=== PATIENT | female | born 1980 | race American Indian/Alaskan Native ===

== ENCOUNTER 2019-12-05 08:32 | Outpatient (CLI) | payer BC, SELFPAY ==
[2019-12-05 08:44] LABS: Basophils Absolute Auto 0.1 K/mm3 (0.0-0.1); Basophils Percent Auto 1.1 % (0.2-1.2); Eosinophils Absolute Auto 0.1 K/mm3 (0-0.3); Eosinophils Percent Auto 2.1 % (0-4.4); Hematocrit 43.6 % (37.0-47.0); Immature Granulocyte Absolute 0.01 K/mm3 (0.00-0.031); Immature Granulocyte Percent A 0.2 % (0-0.5); Lymphocytes Absolute Auto 1.97 K/mm3 (0.9-3.2); Lymphocytes Percent Auto 31.4 % (18.3-44.2); Mean Corpuscular HGB Conc 32.1 g/dl (32-36); Mean Corpuscular Volume 90.3 fl (80-100); Mean Platelet Volume 8.5 fl (7.4-10.4); Monocytes Absolute Auto 0.3 K/mm3 (0.1-0.6); Monocytes Percent Auto 5.3 % (2.6-8.5); Neutrophils Absolute Auto 3.8 K/mm3 (1.3-6.7); Neutrophils Percent Auto 59.9 % (45.5-73.1); Platelet Count Result 404 k/mm3 (150-375); Red Blood Count 4.83 M/mm3 (4.2-5.4); Red Cell Distribution Width 12.7 % (11.5-14.5); White Blood Count 6.3 K/mm3 (4.5-10.0)
[2019-12-08 05:16] LABS: Homocysteine 8.3 umol/L (<10.4)
== END 2019-12-05 08:33 | disposition home or self-care (01) ==
LOC: ANHLAB 08:34
PROVIDERS: PCP Family Medicine; Visit Provider Internal Medicine Hematology & Oncology
DX: D47.3 Essential (hemorrhagic) thrombocythemia (principal)
CPT/HCPCS: 36415; 83090; 85025

== ENCOUNTER 2020-06-16 18:22 | Emergency (ER) | payer BC, SELFPAY ==
--- NOTE | ~2020-06-16 | XR_ITS ---
EXAMINATION: XR abdomen/kub 1V DATE: 06/16/2020 19:06 INDICATION: Hematuria. TECHNIQUE: A supine view of the abdomen on 2 radiographs was obtained. COMPARISON: CT abdomen and pelvis 05/19/2018 FINDINGS: There are no dilated loops of bowel. There is a 1 mm stone in left kidney. There are phlebo liths in the pelvis. Surgical clips in the right upper quadrant are likely from cholecystectomy. IMPRESSION: 1. 1 mm stone in left kidney. Reviewed, dictated and finalized at location [facility].
[2020-06-16 18:29] VITALS: BP 114/82; PULSE 95; RESP 14; TEMP 36.6; O2SAT 99
--- NOTE | 2020-06-16 18:53 | ED.GENADULT ---
HPI - General Adult General Chief complaint: Urogenital-Female Stated complaint: UTI Time Seen by Provider: 06/16/20 18:53 Source: patient Mode of arrival: ambulatory Limitations: no limitations History of Present Illness HPI narrative: 39-year-old female patient resents to the the medical center with complaints of urinary symptoms. Patient states her symptoms started Sunday. Patient states she was seen this past Sunday at a [facility] was placed on Bactrim. Patient states she called them today to see if her culture was back however her culture results have not come back yet. Patient states she is feeling even worse even after being on the Bactrim for about 3 days. Patient states she is feeling nausea, increasing low back pain, some lower abdominal pain, still has pain with urination. Patient does have history of kidney stones before in the past but states that they passed on her own and she never needed surgery for them. Patient states that today she is also had a decrease in urine output. Related Data Home Medications Medication Instructions Recorded Confirmed aspirin [Aspirin Low Dose] 81 mg PO DAILY 06/16/20 06/16/20 folic acid 1 mg PO DAILY 06/16/20 06/16/20 sulfamethoxazole-trimethoprim 1 tablet PO Q12H 06/16/20 06/16/20 [Bactrim DS] Allergies Allergy/AdvReac Type Severity Reaction Status Date / Time acetaminophen AdvReac Unknown VOMTING Verified 06/16/20 18:42 metronidazole AdvReac Unknown GI UPSET / Verified 06/16/20 18:42 EYES/TONGUE TURNING YELLOW HYDROCODONE BIT Allergy Unknown VOMITING Uncoded 01/25/19 11:41 METRONIDAZOLE HCL Allergy Unknown EYES/TONGUE Uncoded 01/25/19 11:41 TURNED YELLOW - GI UPSET Review of Systems Review of Systems: Narrative: CONSTITUTIONAL: Denies fever, chills, or sweats. EYES: Denies visual changes, redness, or discharge. ENT: Denies rhinorrhea, congestion, sore throat, or otalgia. CARDIOVASCULAR: Denies chest pain, palpitations, or edema. RESPIRATORY: Denies cough or dyspnea. GASTROINTESTINAL: Denies abdominal pain, positive nausea, denies vomiting, or diarrhea. GENITOURINARY: Positive dysuria, positive hematuria. SKIN: Denies rash or itching. MUSCULOSKELETAL: Positive low back pain, denies joint pain, or myalgia. NEUROLOGIC: Denies headache, numbness, or weakness. PSYCHIATRIC: Denies anxiety or depression. [facility] Past Medical History Medical History (Updated 06/16/20 @ 19:21 by GILMAR Marquez) Anxiety Depression GERD (gastroesophageal reflux disease) Hyperthyroidism IBS (irritable bowel syndrome) Kidney stones Migraines Pneumonia Pulmonary embolism Urinary tract infection Surgical History Surgical History (Updated 06/16/20 @ 18:54 by GILMAR Marquez) Hx of cholecystectomy Family History Family History Mother Family history of Parkinson's disease Grandparent Family history of Parkinson's disease Other Hypertension Social History Social History Smoking status: Never smoker Alcohol intake: current Comments At the time of my signature I agree with nursing past medical history, surgical, social, and family history. There is no relevant family history pertinent to the presenting complaint. Exam Narrative: Exam Narrative: GENERAL: Well-appearing, well-nourished, and in no acute distress. HEAD: Normocephalic, atraumatic. EYES: PERRLA and EOMI. ENT: Nares clear, no rhinorrhea or epistaxis. Mucous membranes moist. NECK: Supple. No lymphadenopathy CHEST: Clear to auscultation. No respiratory distress. HEART: Regular rate and rhythm. No murmur heard. Normal peripheral pulses. ABDOMEN: Soft, nontender, nondistended, normal active bowel sounds. Suprapubic pelvic pain Palpation. Positive CVA tenderness on bilateral sides on percussion. EXTREMITIES: Normal range of motion. No edema. SKIN: Warm
== END 2020-06-16 19:20 | disposition short-term general hospital (02) ==
PROVIDERS: Emergency Provider Nurse Practitioner Family; PCP Family Medicine
DX: N20.0 Calculus of kidney (principal); F41.9 Anxiety disorder, unspecified; F32.9 Major depressive disorder, single episode, unspecified; K21.9 Gastro-esophageal reflux disease without esophagitis; E05.90 Thyrotoxicosis, unspecified without thyrotoxic crisis or storm; Z86.711 Personal history of pulmonary embolism; Z87.440 Personal history of urinary (tract) infections
CPT/HCPCS: 74018; 81003; 81025; 99213; G0463

== ENCOUNTER 2020-06-16 19:56 | Emergency (ER) | payer BC, SELFPAY ==
--- NOTE | ~2020-06-16 | CT_ITS ---
EXAMINATION: CT abdomen pelvis wo con DATE: 06/16/2020 21:37 INDICATION: Left flank pain. TECHNIQUE: Computed tomography (CT) of the abdomen and pelvis was performed without intravenous contr ast. Automated exposure control and iterative reconstruction technique were employed. The dose-length product was 181.00 mGy-cm. COMPARISON: CT abdomen and pelvis 05/19/2018 FINDINGS: The visualized portions of the lung bases demonstrate mild atelectasis. No pleural effusion . The heart size is normal. No pericardial effusion. Pectus excavatum is noted. There is a small slid ing hiatal hernia. The liver and spleen are normal. There are changes of cholecystectomy. The pancrea s, adrenal glands, and right kidney are normal. There is a 3 mm stone in left kidney. There are no di lated loops of bowel. The appendix is normal. There are no pathologically enlarged lymph nodes. There is no free intraperitoneal fluid. There is thoracolumbar levocurvature. IMPRESSION: 1. 3 mm nonobstructing left kidney stone. 2. Small sliding hiatal hernia. Reviewed, dictated and finalized at location [facility].
[2020-06-16 19:59] VITALS: BP 132/84; PULSE 99; RESP 14; TEMP 36.4; O2SAT 100
[2020-06-16 20:24] LABS: Basophils Absolute Auto 0.1 K/mm3 (0.0-0.1); Basophils Percent Auto 0.8 % (0.2-1.2); Eosinophils Absolute Auto 0.2 K/mm3 (0-0.3); Eosinophils Percent Auto 1.3 % (0-4.4); Hematocrit 43.9 % (37.0-47.0); Hemoglobin 14.7 g/dL (12.0-15.0); Immature Granulocyte Absolute 0.04 K/mm3 (0.00-0.031); Immature Granulocyte Percent A 0.3 % (0-0.5); Lymphocytes Absolute Auto 3.59 K/mm3 (0.9-3.2); Lymphocytes Percent Auto 28.2 % (18.3-44.2); Mean Corpuscular HGB Conc 33.5 g/dl (32-36); Mean Corpuscular Hemoglobin 29.9 pg (26-34); Mean Corpuscular Volume 89.2 fl (80-100); Mean Platelet Volume 8.2 fl (7.4-10.4); Monocytes Absolute Auto 0.8 K/mm3 (0.1-0.6); Monocytes Percent Auto 6.3 % (2.6-8.5); Neutrophils Absolute Auto 8.1 K/mm3 (1.3-6.7); Neutrophils Percent Auto 63.1 % (45.5-73.1); Platelet Count Result 438 k/mm3 (150-375); Red Blood Count 4.92 M/mm3 (4.2-5.4); Red Cell Distribution Width 12.7 % (11.5-14.5); White Blood Count 12.8 K/mm3 (4.5-10.0)
[2020-06-16 20:27] LABS: Add Urine Microscopic? NO; Appearance Urine Clear (Clear); Bilirubin Urine Negative (Negative); Blood Urine Negative (Negative); Color Urine Yellow (Yellow); Glucose Urine UA Negative (Negative); Ketones Urine Negative (Negative); Leukocyte Esterase Ur Negative LEU/UL (Negative); Nitrate Urine Negative (Negative); Protein Urine Negative (Negative); Specific Grav Ur 1.018 (1.001-1.035); Urobilinogen Urine Negative mg/dL (<2.0)
[2020-06-16 20:36] LABS: Anion Gap 10 mmol/L (8-16); Blood Urea Nitrogen 12 mg/dL (7-17); Calcium 8.6 mg/dL (8.4-10.2); Carbon Dioxide 26 mmol/L (22-30); Chloride 98 mmol/L (98-107); Estimated CRCL calculation 65 ml/min; Estimated Glomerular Filt Rate > 60; Glucose 104 mg/dL (65-105); Potassium 3.7 mmol/L (3.4-5.0); Sodium 134 mmol/L (137-145)
[2020-06-16] MEDS: SODIUM CHLORIDE 0.9% IV 1,000 ML 999 ML IV CONT (20:46)
--- NOTE | 2020-06-16 22:08 | ED.ABDPAIN ---
HPI - Abdominal Pain General Chief Complaint: Abdominal Pain Stated Complaint: kidney stone Time Seen by Provider: 06/16/20 20:05 History of Present Illness HPI narrative: Patient is a 39-year-old female who presents the ER with abdominal pain and flank pain. Patient began having symptoms of UTI 5 days ago. 3 days ago she went to an urgent care and was prescribed Bactrim which she has been taking. She feels like she is having persistent lower abdominal discomfort that is radiating into her left flank. Associated with mild nausea. Comes in waves. She does endorse urinary frequency as well as dysuria. Was seen at an urgent care and told she had a kidney stone on x-ray and sent here for further evaluation. Related Data Home Medications Medication Instructions Recorded Confirmed aspirin [Aspirin Low Dose] 81 mg PO DAILY 06/16/20 06/16/20 folic acid 1 mg PO DAILY 06/16/20 06/16/20 sulfamethoxazole-trimethoprim 1 tablet PO Q12H 06/16/20 06/16/20 [Bactrim DS] Allergies Allergy/AdvReac Type Severity Reaction Status Date / Time acetaminophen AdvReac Unknown VOMTING Verified 06/16/20 18:42 metronidazole AdvReac Unknown GI UPSET / Verified 06/16/20 18:42 EYES/TONGUE TURNING YELLOW HYDROCODONE BIT Allergy Unknown VOMITING Uncoded 01/25/19 11:41 METRONIDAZOLE HCL Allergy Unknown EYES/TONGUE Uncoded 01/25/19 11:41 TURNED YELLOW - GI UPSET Review of Systems Review of Systems: All systems reviewed & are unremarkable except as noted in HPI and below Constitutional: Constitutional: Denies chills, Denies fever(s) and Denies weakness ENT: Denies nasal congestion and Denies sore throat Gastrointestinal: Gastrointestinal: Reports abdominal pain, Denies diarrhea, Reports nausea and Denies vomiting Genitourinary: Genitourinary: Reports nocturia, Reports dysuria and Reports flank pain PMFSH Past Medical History Medical History (Updated 06/16/20 @ 22:15 by Jose Mitchell MD) Anxiety Depression GERD (gastroesophageal reflux disease) Hyperthyroidism IBS (irritable bowel syndrome) Kidney stones Migraines Pneumonia Pulmonary embolism Urinary tract infection Surgical History Surgical History (Updated 06/16/20 @ 18:54 by GILMAR Marquez) Hx of cholecystectomy Social History Social History Smoking status: Never smoker Alcohol intake: current Exam Narrative: Exam Narrative: GENERAL: Well-appearing, well-nourished, and in no acute distress. HEAD: Normocephalic, atraumatic. ENT: Mucous membranes moist. CHEST: Clear to auscultation. No respiratory distress. HEART: Regular rate and rhythm. Normal peripheral pulses. ABDOMEN: Soft, nontender, nondistended. Mild left CVA tenderness. EXTREMITIES: Normal range of motion. No edema. SKIN: Warm, dry, no rash. NEURO: Alert and oriented x3. Course Course Emergency Course: Patient informed of results. Hydrated. Discharge home with [facility]. Vital Signs Vital signs: Vital Signs Temperature 97.5 F L 06/16/20 19:59 Pulse Rate 99 06/16/20 19:59 Respiratory Rate 14 06/16/20 19:59 Blood Pressure 132/84 06/16/20 19:59 Pulse Oximetry 100 06/16/20 19:59 Temperature 97.5 F L 06/16/20 19:59 Pulse Rate 99 06/16/20 19:59 Respiratory Rate 14 06/16/20 19:59 Blood Pressure 132/84 06/16/20 19:59 Pulse Oximetry 100 06/16/20 19:59 MDM - Abdominal Pain Lab Data Result diagrams: 06/16/20 20:19 06/16/20 20:19 Labs: Lab Results 06/16/20 06/16/20 06/16/20 Range/Units 20:19 20:19 20:19 WBC 12.8 H (4.5-10.0) K/mm3 RBC 4.92 (4.2-5.4) M/mm3 Hgb 14.7 (12.0-15.0) g/dL Hct 43.9 (37.0-47.0) % MCV 89.2 (80-100) fl MCH 29.9 (26-34) pg MCHC 33.5 (32-36) g/dl RDW 12.7 (11.5-14.5) % Plt Count 438 H (150-375) k/mm3 MPV 8.2 (7.4-10.4) fl Immature Gran % (Auto) 0.3 (0-0.5) % Jody
[2020-06-16] MEDS: KETOROLAC 30 MG/ML VIAL (*BKC) IV PUSH (22:27)
== END 2020-06-17 22:35 | disposition home or self-care (01) ==
PROVIDERS: Emergency Provider Emergency Medicine; PCP Family Medicine
DX: N39.0 Urinary tract infection, site not specified (principal); K21.9 Gastro-esophageal reflux disease without esophagitis; Z86.711 Personal history of pulmonary embolism; E05.90 Thyrotoxicosis, unspecified without thyrotoxic crisis or storm; Z79.01 Long term (current) use of anticoagulants
CPT/HCPCS: 36415; 74176; 80048; 81003; 81025; 85025; 96374; 99284; J1885; J7030

== ENCOUNTER 2020-09-02 15:28 | Outpatient (CLI) | payer BC, SELFPAY ==
[2020-09-02 15:41] LABS: Basophils Absolute Auto 0.1 K/mm3 (0.0-0.1); Basophils Percent Auto 1.1 % (0.2-1.2); Eosinophils Absolute Auto 0.3 K/mm3 (0-0.3); Eosinophils Percent Auto 3.1 % (0-4.4); Hematocrit 40.7 % (37.0-47.0); Hemoglobin 13.5 g/dL (12.0-15.0); Immature Granulocyte Absolute 0.02 K/mm3 (0.00-0.031); Immature Granulocyte Percent A 0.2 % (0-0.5); Lymphocytes Absolute Auto 2.52 K/mm3 (0.9-3.2); Lymphocytes Percent Auto 30.3 % (18.3-44.2); Mean Corpuscular HGB Conc 33.2 g/dl (32-36); Mean Corpuscular Hemoglobin 29.7 pg (26-34); Mean Corpuscular Volume 89.5 fl (80-100); Mean Platelet Volume 8.4 fl (7.4-10.4); Monocytes Absolute Auto 0.6 K/mm3 (0.1-0.6); Monocytes Percent Auto 7.2 % (2.6-8.5); Neutrophils Absolute Auto 4.8 K/mm3 (1.3-6.7); Neutrophils Percent Auto 58.1 % (45.5-73.1); Platelet Count Result 380 k/mm3 (150-375); Red Blood Count 4.55 M/mm3 (4.2-5.4); Red Cell Distribution Width 12.7 % (11.5-14.5); White Blood Count 8.3 K/mm3 (4.5-10.0)
[2020-09-02 16:36] LABS: Alanine Aminotransferase 20 U/L (4-35); Albumin Level 4.1 g/dL (3.5-5.1); Alkaline Phosphatase 94 U/L (38-126); Anion Gap 8 mmol/L (8-16); Aspartate Amino Transferase 24 U/L (14-36); Bilirubin,Total 0.5 mg/dL (0.2-1.3); Blood Urea Nitrogen 13 mg/dL (7-17); Calcium 8.7 mg/dL (8.4-10.2); Carbon Dioxide 25 mmol/L (22-30); Chloride 104 mmol/L (98-107); Estimated Glomerular Filt Rate > 60; Glucose 92 mg/dL (65-105); Sodium 137 mmol/L (137-145)
== END 2020-09-02 15:29 | disposition home or self-care (01) ==
LOC: ANHLAB 15:29
PROVIDERS: PCP Family Medicine; Visit Provider Internal Medicine Hematology & Oncology
DX: D47.3 Essential (hemorrhagic) thrombocythemia (principal)
CPT/HCPCS: 36415; 80053; 85025

== ENCOUNTER 2020-10-11 07:47 | Outpatient (CLI) | payer BC, SELFPAY ==
--- NOTE | ~2020-10-11 | US_ITS ---
EXAMINATION: US pelvic complete w TV DATE: 10/11/2020 08:37 INDICATION: Vaginal bleeding and pelvic pain TECHNIQUE: Multiple transabdominal and endovaginal sonographic images of the pelvis were obtained. COMPARISON: 07/20/2013; CT, 06/16/2020 FINDINGS: The uterus measures 7.5 x 5.4 x 4.7 cm. The endometrial complex measures 10 mm. The right o vary is not visualized. There is a 5.1 x 3.6 x 2.4 cm heterogeneous mass of the right adnexa. Also se en is a second 3.1 x 2.1 x 2.1 cm heterogeneous right adnexal mass. Correlating intermediate attenuat ion lesions are identified in the right adnexa on the comparison unenhanced CT but incompletely vernon cterized. The left ovary measures 2.2 x 2.3 x 2.7 cm. There is normal vascular flow in the ovaries. T here is no free fluid in the pelvis. IMPRESSION: 1. Right adnexal masses which could reflect hemorrhagic cysts or endometriomas. Follow-up pelvic ultr asound in 6-12 weeks is recommended. If persistent, consider further evaluation by MRI without and wi th contrast. Reviewed, dictated and finalized at location A. [employer] IMPRESSION: 1. Right adnexal masses which could reflect hemorrhagic cysts or endometriomas. Follow-up pelvic ultrasound in 6-12 weeks is recommended. If persistent, consi adebayo further evaluation by MRI without and with contrast.
== END 2020-10-11 07:48 | disposition home or self-care (01) ==
PROVIDERS: PCP Family Medicine; Visit Provider Obstetrics & Gynecology
DX: N93.9 Abnormal uterine and vaginal bleeding, unspecified (principal); R10.2 Pelvic and perineal pain
CPT/HCPCS: 76830; 76856

== ENCOUNTER 2020-10-26 07:52 | Outpatient (CLI) | payer BC, SELFPAY | END 2020-10-26 07:53 | disposition home or self-care (01) | LOC: ANHSURGERY 07:59 | PROVIDERS: PCP Family Medicine; Visit Provider Obstetrics & Gynecology | DX: Z01.812 Encounter for preprocedural laboratory examination (principal); R10.2 Pelvic and perineal pain | CPT/HCPCS: 36415; 86850; 86900; 86901 ==

== ENCOUNTER 2020-10-29 00:33 | Outpatient (CLI) | payer BC, SELFPAY ==
[2020-10-29 19:17] LABS: SARS-CoV-2 RNA PCR Negative
== END 2020-10-29 00:34 | disposition home or self-care (01) ==
LOC: ANHCOVIDDT 00:34
PROVIDERS: PCP Family Medicine; Visit Provider Obstetrics & Gynecology
DX: Z01.818 Encounter for other preprocedural examination (principal); Z20.822 Contact with and (suspected) exposure to COVID-19
CPT/HCPCS: C9803; U0003; U0005

== ENCOUNTER 2020-11-01 00:50 | Day surgery (SDC) | payer BC, SELFPAY ==
[2020-10-25 14:20] VITALS: BMI 23.1
--- NOTE | 2020-10-27 08:08 | PM.IMHP ---
H&P: HPI History of Present Illness Date/Time: 10/27/20 08:08 Chief Complaint: pain Narrative: Mayda Cornelius is a 40 year old female who was admitted for diagnostic laparoscopy with right ovarian cystectomy and possible RSO. She has pelvic pain and underwent ultrasound which showed a complex right ovarian cyst. It may be an endometrioma. She opted for laparoscopy with removal possible RSO. Risks and benefits were reviewed including but not exclusive , aspiration pneumonia, bleeding, transfusion, perforation injury to bowel, bladder, ureters, or other internal organs with need for laparotomy. She voiced good understanding. She had all questions answered. She asked to proceed Review of Systems Review of Systems: All systems reviewed & are unremarkable except as noted in HPI and below PMFSH Past Medical History Medical History Anxiety Depression GERD (gastroesophageal reflux disease) Hyperthyroidism IBS (irritable bowel syndrome) Kidney stones Migraines Pneumonia Pulmonary embolism Urinary tract infection Surgical History Surgical History Hx of cholecystectomy Family History Family History Mother Family history of Parkinson's disease Grandparent Family history of Parkinson's disease Other Hypertension Social History Social History Smoking status: Never smoker Alcohol intake: current Drinks per week: 3 Spiritual care concerns: No Meds Home Medications and Allergies Home Medications Medication Instructions Recorded Confirmed Type aspirin [Aspirin Low Dose] 81 mg PO DAILY 06/16/20 10/25/20 History folic acid 1 mg PO DAILY 06/16/20 10/25/20 History Allergies Allergy/AdvReac Type Severity Reaction Status Date / Time metronidazole AdvReac Unknown GI UPSET / Verified 06/16/20 18:42 EYES/TONGUE TURNING YELLOW HYDROCODONE BIT Allergy Unknown VOMITING Uncoded 01/25/19 11:41 METRONIDAZOLE HCL Allergy EYES/TONGUE Uncoded 10/25/20 14:28 TURNED YELLOW - GI UPSET Exam Const: General: no acute distress Eyes: General: appearance normal, both eyes and all related structures Neck: Neck: supple and no JVD Thyroid: thyroid normal Resp: Effort & Inspection: normal respiratory effort Auscultation: clear to auscultation bilaterally Cardio: Rate: regular rate Rhythm: regular rhythm GI: Inspection: non-distended GI Palp: Yes Soft to palpation, No Tenderness to palpation present (GI) and No Guarding due to palpation present (GI) Auscultation: normal bowel sounds : General: Yes bladder normal to inspection External Female Exam: normal external appearance Speculum Exam - Vagina: normal appearance of the vagina Speculum Exam - Cervix: normal appearance of the cervix Bimanual exam- vagina & uterus: uterine size normal Bimanual Exam- Adnexa, other: Adnexal mass present on the right tender Skin: General skin exam: no rashes or lesions noted Extrem: General: normal to inspection and no edema Psych: Mental Status: mental status grossly normal Affect: normal affect Assessment and Plan Additional Plan impression: Right complex ovarian cyst Plan: Laparoscopy right ovarian cystectomy /possible right salpingo-oophorectomy
[2020-11-01] VITALS (8 sets, daily range): BP systolic 91–120; BP diastolic 67–79; PULSE 91–104; RESP 12–20; TEMP 36.5–36.8; O2SAT 98–100; BMI 23.6
--- NOTE | 2020-11-01 05:45 | WPDHPUPDATE1 ---
History and Physical Update Update Date/Time: 11/01/20 05:45 History and Physical has been reviewed, including an updated exam of the patient. There are NO changes in the patient's condition. Risks, benefits, and alternatives have been discussed and questions answered. Patient agrees to proceed with procedure.
[2020-11-01] MEDS: LACTATED RINGERS 1,000 ML 30 ML IV CONT ×2 (06:46→08:23)
[2020-11-01] MEDS: ACETAMINOPHEN 500 MG TABLET 1000 MG PO (06:52)
[2020-11-01] MEDS: KETOROLAC 15 MG/ML VIAL (*BKC) IV PUSH (06:52)
--- NOTE | 2020-11-01 06:58 | WPDANESEPPF ---
Anes - Initial Pre Proc Eval Procedure: Operation Date: 11/01/20 07:30 Proposed Procedures p Laparoscopic Right Ovarian Cystectomy, Possible Right Salpingo-Oophorectomy - Georgi Schroeder MD Date/Time: 11/01/20 06:58 Surgeon: Georgi Schroeder MD Pre Op Diagnosis: Right Ovarian Cyst, Pelvic Pain Patient Data Age: 40 Gender: F Height: 5 ft 4 in Weight: 62.6 kg Allergies Allergy/AdvReac Type Severity Reaction Status Date / Time metronidazole AdvReac Unknown GI UPSET / Verified 11/01/20 06:26 EYES/TONGUE TURNING YELLOW METRONIDAZOLE HCL Allergy EYES/TONGUE Uncoded 11/01/20 06:26 TURNED YELLOW - GI UPSET HYDROCODONE BIT AdvReac Intermediate VOMITING Uncoded 11/01/20 06:26 Home Medications Medication Instructions Recorded Confirmed Type aspirin [Aspirin Low Dose] 81 mg PO DAILY 06/16/20 11/01/20 History folic acid 1 mg PO DAILY 06/16/20 11/01/20 History hydrocodone-acetaminophen [Frederic] 1 tablet PO Q4H PRN #30 tablet 11/01/20 Rx ondansetron HCl [Zofran] 4 mg PO Q6H PRN #14 tablet 11/01/20 Rx Patient hx anesthesia problems: post op nausea/vomiting Family hx anesthesia problems: none PMFSH Past Medical History Medical History Anxiety Depression GERD (gastroesophageal reflux disease) Hyperthyroidism IBS (irritable bowel syndrome) Kidney stones Migraines Pneumonia Pulmonary embolism Urinary tract infection Surgical History Surgical History Hx of cholecystectomy Family History Family History Mother Family history of Parkinson's disease Grandparent Family history of Parkinson's disease Other Hypertension Social History Social History Smoking status: Never smoker Alcohol intake: current Drinks per week: 3 Living arrangements: with family Spiritual care concerns: No Anes - Eval Final PreProcedure Day of Procedure 11/01/20 06:58 Patient weight: normal Heart: regular rate and rhythm Lungs: clear to auscultation Airway: Mallampati scale class 1 Neurological: alert and oriented Last oral intake: >/= 8 hours ASA classification: II Emergent: no Anesthetic plan: proceed Anesthesia type and monitoring: general ETT and standard monitoring Informed Consent: The patient's anesthetic plan and its attendant risks and benefits were discussed with the patient/family/POA. Questions were solicited and answers provided to the satisfaction of the patient/family/POA.
[2020-11-01] MEDS: SCOPOLAMINE 1.5 MG PATCH TRANSDERM (07:18)
--- NOTE | 2020-11-01 08:15 | PM.PROC ---
Procedure Note - Detailed Date of procedure: 11/01/20 Pre-op diagnosis: Right Ovarian Cyst, Pelvic Pain Surgeon: Georgi Schroeder MD Postop diagnosis: Right endometrioma/pelvic pain/adhesions Procedure: Laparoscopic right salpingo-oophorectomy and lysis of adhesions Anesthesia: General endotracheal Complications: None EBL: 5cc Findings: Enlarged right-sided endometrioma that involved the tube and ovary. Multiple adhesions. Normal-appearing left ovary and tube. Normal-appearing uterus. Normal-appearing appendix Description of procedure: The patient was prepped draped in the normal sterile fashion placed in the dorsal lithotomy position. Under excellent general endotracheal anesthesia weighted speculum placed in posterior fornix of vagina. Anterior lip of the cervix was grasped with a single-tooth tenaculum and a Mejia's cannula inserted to the cervix and attached to be used later for uterine manipulation. The bladder was drained of clear urine. The weighted speculum was removed and the gloves were changed. An infraumbilical incision was made the Veress needle passed in the abdomen. Abdomen filled with CO2 gas [id number]. The 5mm trocar was advanced under direct visualization assuring no injury. The patient placed in [facility] in Trendelenburg and a suprapubic incision made. 5mm trocar was advanced under direct visualization assuring no injury. A right lower quadrant incision made and the 10mm trocar advanced in the abdomen assuring no injury. The endometrioma was noted to be large and irregular. Using sharp dissection and sharply dissected from the posterior cervix of the uterus and the ovarian fossa. The infundibulopelvic structure was then skeletonized. This was serially clamped, burned, cut with the LigaSure. The specimen was placed in the Endo-Catch and removed through the right lower quadrant incision. Irrigation was undertaken until clear. Hemostasis was assured the left adnexa appeared within normal limits and irrigation was undertaken until clear. Blood loss estimated at5cc. The lower site removed. The upper site removed and after gas removed from the abdomen and the incisions closed with 4 O Monocryl and glue. Blood loss was estimated at5cc. All sponge, needle, instrument counts were correct. There were no immediate complications
[2020-11-01] MEDS: fentaNYL CITRATE INJ (*CRX) 100 MCG/2 ML VIAL 25 MCG IV PUSH (08:36)
[2020-11-01] MEDS: ONDANSETRON INJ 4 MG/2 ML VIAL IV PUSH (08:45)
== END 2020-11-01 10:30 | disposition home or self-care (01) ==
PROVIDERS: PCP Family Medicine; Visit Provider Obstetrics & Gynecology
PROC: (CPT 49320; principal; 2020-11-01 07:30)
DX: N80.1 Endometriosis of ovary (principal); N73.6 Female pelvic peritoneal adhesions (postinfective); R10.2 Pelvic and perineal pain; E05.90 Thyrotoxicosis, unspecified without thyrotoxic crisis or storm; K21.9 Gastro-esophageal reflux disease without esophagitis; F41.8 Other specified anxiety disorders; K58.9 Irritable bowel syndrome, unspecified; Z86.711 Personal history of pulmonary embolism
CPT/HCPCS: 58661; 88305; A9270; J0330; J1100; J1885; J2250; J2405; J2704; J3010; J7030; J7120

== ENCOUNTER 2021-02-10 08:46 | Outpatient (CLI) | payer BC, SELFPAY ==
[2021-02-10 09:23] LABS: Basophils Absolute Auto 0.1 K/mm3 (0.0-0.1); Basophils Percent Auto 0.9 % (0.2-1.2); Eosinophils Absolute Auto 0.1 K/mm3 (0-0.3); Eosinophils Percent Auto 1.1 % (0-4.4); Hematocrit 42.3 % (37.0-47.0); Hemoglobin 13.8 g/dL (12.0-15.0); Immature Granulocyte Absolute 0.02 K/mm3 (0.00-0.031); Immature Granulocyte Percent A 0.3 % (0-0.5); Lymphocytes Percent Auto 21.4 % (18.3-44.2); Mean Corpuscular HGB Conc 32.6 g/dl (32-36); Mean Corpuscular Hemoglobin 29.4 pg (26-34); Mean Corpuscular Volume 90.2 fl (80-100); Mean Platelet Volume 8.4 fl (7.4-10.4); Monocytes Absolute Auto 0.5 K/mm3 (0.1-0.6); Monocytes Percent Auto 6.6 % (2.6-8.5); Neutrophils Absolute Auto 5.2 K/mm3 (1.3-6.7); Neutrophils Percent Auto 69.7 % (45.5-73.1); Platelet Count Result 396 k/mm3 (150-375); Red Blood Count 4.69 M/mm3 (4.2-5.4); Red Cell Distribution Width 12.6 % (11.5-14.5); White Blood Count 7.5 K/mm3 (4.5-10.0)
[2021-02-10 09:41] LABS: LDL Cholesterol Direct 108 mg/dL
[2021-02-10 09:47] LABS: Alanine Aminotransferase 18 U/L (4-35); Albumin Level 4.3 g/dL (3.5-5.1); Alkaline Phosphatase 77 U/L (38-126); Anion Gap 3 mmol/L (8-16); Aspartate Amino Transferase 33 U/L (14-36); Bilirubin,Total 1.1 mg/dL (0.2-1.3); Blood Urea Nitrogen 11 mg/dL (7-17); Calcium 8.6 mg/dL (8.4-10.2); Carbon Dioxide 30 mmol/L (22-30); Chloride 104 mmol/L (98-107); Cholesterol 177 mg/dL (0-200); Estimated Glomerular Filt Rate > 60; Glucose 91 mg/dL (65-105); HDL Direct 51 mg/dL; Sodium 137 mmol/L (137-145); Triglycerides 91 mg/dL (<150)
[2021-02-10 10:28] LABS: Thyroid Stimulating Hormone Reflex 0.359 uIU/mL (0.465-4.68)
[2021-02-10 11:47] LABS: Free T4 Free Thyroxine Reflex 1.51 ng/dL (0.78-2.19)
[2021-02-10 12:28] LABS: Total Triiodothyronine (T3) 1.33 NG/ML (0.97-1.69)
[2021-02-15 11:42] LABS: Vitamin D 1,25 (OH)2 Total 53 pg/mL (18-72); Vitamin D2 1,25 (OH)2 22 pg/mL; Vitamin D3 1,25 (OH)2 31 pg/mL
== END 2021-02-10 08:47 | disposition home or self-care (01) ==
LOC: ANHLAB 08:48
PROVIDERS: PCP Family Medicine; Visit Provider Physician Assistant
DX: R00.2 Palpitations (principal); Z00.00 Encounter for general adult medical examination without abnormal findings; Z13.220 Encounter for screening for lipoid disorders; E55.9 Vitamin D deficiency, unspecified
CPT/HCPCS: 36415; 80053; 80061; 82652; 84439; 84443; 84480; 85025

== ENCOUNTER 2021-05-01 21:02 | Emergency (ER) | payer BC, SELFPAY ==
--- NOTE | ~2021-05-01 | CT_ITS ---
EXAMINATION: CTA chest PE protocol DATE: 05/02/2021 00:39 INDICATION: Shortness of breath. History of pulmonary embolism. TECHNIQUE: Computed tomography angiography (CTA) of the chest was performed with 100 mL Omnipaque-350 intravenous contrast timed to evaluate the pulmonary arteries. Coronal maximum intensity projection 3D-reconstructions were created by the technologist. Automated exposure control and iterative reconst ruction technique were employed. Exam dose: 174.79 mGy-cm total exam DLP. COMPARISON: 05/01/2021 2 view chest FINDINGS: There is diagnostic contrast enhancement of the pulmonary arteries and no evidence of pulmo nary embolism. No thoracic aortic aneurysm or dissection. No hilar or mediastinal mass lesion or lymphadenopathy. Normal heart size. No pericardial or pleural effusion. Minimal dependent bilateral lower lobe atelectasis. No pulmonary infiltrate or consolidation or pulmo nary mass lesion is evident. Status post cholecystectomy. The adrenal glands appear normal. No suspicious osteolytic or osteoblastic lesions. IMPRESSION: No evidence of pulmonary embolism Reviewed, dictated and finalized at Location [facility]. Reviewed, dictated and finalized at location B.
--- NOTE | ~2021-05-01 | XR_ITS ---
EXAMINATION: XR chest 2V DATE: 05/01/2021 21:13 INDICATION: Chest pressure TECHNIQUE: PA and lateral views of the chest are obtained. COMPARISON: 01/25/2019 FINDINGS: The lungs are free of acute opacities. There is no pleural effusion or pneumothorax. The ca rdiomediastinal silhouette is normal. The visualized bones and soft tissues are unremarkable. Cholecy stectomy clips are noted. IMPRESSION: 1. No acute cardiopulmonary abnormality. Reviewed, dictated and finalized at location A.
--- NOTE | 2021-05-01 21:03 | ECG_ITS ---
Measurements Intervals [place] Rate: 106 P: 65 MA: 148 QRS: 57 QRSD: 72 T: 18 QT: 313 QTc: 417 Interpretive Statements SINUS TACHYCARDIA LEFT ATRIAL ENLARGEMENT INCOMPLETE RIGHT BUNDLE BRANCH BLOCK NONSPECIFIC T-WAVE ABNORMALITY- ANT/INF LEADS ABNORMAL ECG Electronically Signed On 05-02-2021 6:17:55 CDT by Gerardo Cruz D.O.
[2021-05-01 21:12] VITALS: BP 129/92; PULSE 112; RESP 20; TEMP 36.3; O2SAT 100
[2021-05-01 21:33] LABS: Basophils Absolute Auto 0.1 K/mm3 (0.0-0.1); Basophils Percent Auto 0.7 % (0.2-1.2); Eosinophils Absolute Auto 0.2 K/mm3 (0-0.3); Eosinophils Percent Auto 1.2 % (0-4.4); Hematocrit 43.9 % (37.0-47.0); Hemoglobin 14.7 g/dL (12.0-15.0); Immature Granulocyte Absolute 0.04 K/mm3 (0.00-0.031); Immature Granulocyte Percent A 0.3 % (0-0.5); Lymphocytes Absolute Auto 3.31 K/mm3 (0.9-3.2); Lymphocytes Percent Auto 25.7 % (18.3-44.2); Mean Corpuscular HGB Conc 33.5 g/dl (32-36); Mean Corpuscular Hemoglobin 29.1 pg (26-34); Mean Corpuscular Volume 86.9 fl (80-100); Mean Platelet Volume 8.3 fl (7.4-10.4); Monocytes Absolute Auto 0.8 K/mm3 (0.1-0.6); Monocytes Percent Auto 6.1 % (2.6-8.5); Neutrophils Absolute Auto 8.5 K/mm3 (1.3-6.7); Platelet Count Result 456 k/mm3 (150-375); Red Blood Count 5.05 M/mm3 (4.2-5.4); Red Cell Distribution Width 13.2 % (11.5-14.5); White Blood Count 12.9 K/mm3 (4.5-10.0)
[2021-05-01 21:42] LABS: Anion Gap 11 mmol/L (8-16); Blood Urea Nitrogen 10 mg/dL (7-17); Calcium 9.2 mg/dL (8.4-10.2); Carbon Dioxide 26 mmol/L (22-30); Chloride 102 mmol/L (98-107); Estimated CRCL calculation 81 ml/min; Estimated Glomerular Filt Rate > 60; Glucose 124 mg/dL (65-110); Potassium 3.5 mmol/L (3.4-5.0); Sodium 139 mmol/L (137-145)
[2021-05-01 21:43] LABS: INR 0.9; Prothrombin Time 12.3 Seconds (11.1-14.7)
[2021-05-01 21:44] LABS: Partial Thromboplastin Time 25.9 SECONDS (22.3-36.8)
[2021-05-01 21:54] LABS: Troponin I < 0.012 ng/mL (0.000-0.034)
--- NOTE | 2021-05-01 23:31 | ED.GENADULT ---
HPI - General Adult General Chief complaint: Chest Pain Stated complaint: sob, chest pressure through to back, hx pe Time Seen by Provider: 05/01/21 23:01 History of Present Illness HPI narrative: Patient 40-year-old female presents the emergency department with chief complaint of shortness of breath and chest discomfort. Patient reports she has history of pulmonary embolism several years ago she was treated with anticoagulants and then subsequently switched to just taking an aspirin. 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 The patient states she has a tightness feeling in her chest reports that is not improved by anything nor is it worsened by anything. Patient denies fever denies productive cough. Related Data Home Medications Medication Instructions Recorded Confirmed aspirin [Aspirin Low Dose] 81 mg PO DAILY 06/16/20 02/10/21 folic acid 1 mg PO DAILY 06/16/20 02/10/21 Allergies Allergy/AdvReac Type Severity Reaction Status Date / Time metronidazole AdvReac Unknown GI UPSET / Verified 05/01/21 21:14 EYES/TONGUE TURNING YELLOW METRONIDAZOLE HCL Allergy EYES/TONGUE Uncoded 05/01/21 21:14 TURNED YELLOW - GI UPSET HYDROCODONE BIT AdvReac Intermediate VOMITING Uncoded 05/01/21 21:14 Review of Systems Review of Systems: A 10 system review of systems was completed on the patient and is negative except for what is stated in the HPI. Nursing and ancillary documentation was reviewed. PMFSH Past Medical History Medical History Anxiety Depression Endometriosis GERD (gastroesophageal reflux disease) Hyperthyroidism IBS (irritable bowel syndrome) Kidney stones Migraines Pneumonia Pulmonary embolism Urinary tract infection Surgical History Surgical History Hx of cholecystectomy Hx of removal of ovary Right ovary November 2020 Family History Family History Mother Family history of Parkinson's disease Hypertension Grandparent Family history of Parkinson's disease Social History Social History Smoking status: Never smoker Second hand tobacco smoke exposure: No Alcohol intake: current Drinks per week: 3 Substance use: never Substance use type: does not use Gender identity (if verbalized by the patient): Female Sexual Orientation (if Verbalized by the Patient): Straight or Heterosexual Spiritual care concerns: No Exam Narrative: GENERAL: Well-appearing, well-nourished, and in no acute distress. HEAD: Normocephalic, atraumatic. EYES: PERRLA and EOMI. ENT: Nares clear, no rhinorrhea or epistaxis. Mucous membranes moist. NECK: Supple. CHEST: Clear to auscultation. No respiratory distress. HEART: Regular rate and rhythm. No murmur heard. Normal peripheral pulses. ABDOMEN: Soft, nontender, nondistended, normal active bowel sounds. EXTREMITIES: Normal range of motion. No edema. SKIN: Warm, dry, no rash. NEURO: No focal deficits. Alert and oriented x3. PSYCH: Normal mood and affect. Course Course Emergency Course: CTA of the chest showed no evidence of pulmonary embolism Vital Signs Vital signs: Vital Signs Temperature 36.3 C L 05/01/21 21:12 Pulse Rate 112 H 05/01/21 21:12 Respiratory Rate 20 05/01/21 21:12 Blood Pressure 129/92 H 05/01/21 21:12 Pulse Oximetry 100 05/01/21 21:12 Temperature 36.3 C L 05/01/21 21:12 Pulse Rate 105 H 05/02/21 02:01 Respiratory Rate 19 05/02/21 02:01 Blood Pressure 121/74 05/02/21 02:01 Pulse Oximetry 99 05/02/21 02:01 Medical Decision Making Vital Signs Vital Signs:
[2021-05-01 23:38] VITALS: BP 112/73; PULSE 109; RESP 22; O2SAT 100
[2021-05-01] MEDS: ASPIRIN 81 MG CHEWABLE TABLET 324 MG PO (23:56)
[2021-05-02 00:24] VITALS: BP 112/73; PULSE 98; RESP 21; O2SAT 98
[2021-05-02 01:01] LABS: Troponin I < 0.012 ng/mL (0.000-0.034)
[2021-05-02 02:01] VITALS: BP 121/74; PULSE 105; RESP 19; O2SAT 99
[2021-05-02 02:22] VITALS: BP 121/74; PULSE 91; RESP 18; O2SAT 100
== END 2021-05-02 02:25 | disposition home or self-care (01) ==
PROVIDERS: Emergency Provider Emergency Medicine; PCP Family Medicine
DX: R06.00 Dyspnea, unspecified (principal); R07.89 Other chest pain; N80.9 Endometriosis, unspecified; K21.9 Gastro-esophageal reflux disease without esophagitis; E05.90 Thyrotoxicosis, unspecified without thyrotoxic crisis or storm; K58.9 Irritable bowel syndrome, unspecified; Z86.711 Personal history of pulmonary embolism; Z87.442 Personal history of urinary calculi; Z87.440 Personal history of urinary (tract) infections; Z79.82 Long term (current) use of aspirin; R00.0 Tachycardia, unspecified; I45.10 Unspecified right bundle-branch block; R94.31 Abnormal electrocardiogram [ECG] [EKG]
CPT/HCPCS: 36415; 71046; 71275; 80048; 81025; 84484; 85025; 85610; 85730; 93005; 99284; A9270; Q9967

== ENCOUNTER 2021-08-03 10:48 | Outpatient (CLI) | payer BC, SELFPAY ==
--- NOTE | ~2021-08-03 | XR_ITS ---
EXAMINATION: XR chest 2V DATE: 08/03/2021 11:07 INDICATION: Cough, unspecified TECHNIQUE: PA and lateral views of the chest are obtained. COMPARISON: 05/01/2021 FINDINGS: The lungs are free of acute opacities. There is no pleural effusion or pneumothorax. The ca rdiomediastinal silhouette is normal. The visualized bones and soft tissues are unremarkable. Cholecy stectomy clips are noted. IMPRESSION: 1. No acute cardiopulmonary abnormality. Reviewed, dictated and finalized at location B.
== END 2021-08-03 10:49 | disposition home or self-care (01) ==
PROVIDERS: PCP Family Medicine; Visit Provider Physician Assistant
DX: R05.9 Cough, unspecified (principal)
CPT/HCPCS: 71046

== ENCOUNTER 2021-11-05 08:50 | Emergency (ER) | payer BC, SELFPAY ==
--- NOTE | ~2021-11-05 | CT_ITS ---
EXAMINATION: CT abdomen pelvis w con DATE: 11/05/2021 10:58 INDICATION: Upper quadrant pain. Prior cholecystectomy. Vomiting. TECHNIQUE: Computed tomography (CT) of the abdomen and pelvis was performed with 100 cc Omnipaque 350 intravenous contrast. The dose-length product was 297.70 mGy-cm. Automated exposure control and iter ative reconstruction technique were employed. COMPARISON: CT dated 06/16/2020. FINDINGS: Lung bases are unremarkable. Heart size normal. No significant pleural or pericardial effus ion. No significant vascular abnormality. Status post cholecystectomy. The liver, spleen, pancreas, adrenal glands and left kidney are unremark able. Small subcentimeter hypodensity of the right kidney. Status post cholecystectomy. Nonobstructiv e bowel gas pattern. Normal appendix. Few colonic diverticula without evidence for diverticulitis. Sm all accessory splenule. There is a vaginal cuff with air-fluid level. Uterus is retroverted with flui d in the endometrium. Bladder is relatively decompressed. Small amount of free fluid in the pelvis. T here is a punctate nonobstructing 2 mm left renal stone. No free air or free fluid. Mild lumbar spond ylosis. IMPRESSION: 1. No acute abdominal abnormality. 2: Nonobstructing 2 mm left renal stone. Reviewed, dictated and finalized at location A. E ROOM OPERATOR
[2021-11-05 09:10] VITALS: BP 123/88; PULSE 97; RESP 18; TEMP 36.7; O2SAT 100
[2021-11-05 09:13] LABS: Basophils Absolute Auto 0.1 K/mm3 (0.0-0.1); Basophils Percent Auto 0.6 % (0.2-1.2); Eosinophils Absolute Auto 0.1 K/mm3 (0-0.3); Eosinophils Percent Auto 0.9 % (0-4.4); Hematocrit 44.2 % (37.0-47.0); Hemoglobin 14.6 g/dL (12.0-15.0); Immature Granulocyte Absolute 0.02 K/mm3 (0.00-0.031); Immature Granulocyte Percent A 0.2 % (0-0.5); Lymphocytes Absolute Auto 2.61 K/mm3 (0.9-3.2); Lymphocytes Percent Auto 25.9 % (18.3-44.2); Mean Corpuscular Hemoglobin 29.1 pg (26-34); Mean Platelet Volume 8.3 fl (7.4-10.4); Monocytes Absolute Auto 0.6 K/mm3 (0.1-0.6); Monocytes Percent Auto 5.6 % (2.6-8.5); Neutrophils Absolute Auto 6.7 K/mm3 (1.3-6.7); Neutrophils Percent Auto 66.8 % (45.5-73.1); Platelet Count Result 439 k/mm3 (150-375); Red Blood Count 5.02 M/mm3 (4.2-5.4); White Blood Count 10.1 K/mm3 (4.5-10.0)
[2021-11-05 09:29] LABS: Alanine Aminotransferase 23 U/L (4-35); Albumin Level 4.8 g/dL (3.5-5.1); Alkaline Phosphatase 100 U/L (38-126); Anion Gap 10 mmol/L (8-16); Aspartate Amino Transferase 34 U/L (14-36); Bilirubin,Total 0.9 mg/dL (0.2-1.3); Blood Urea Nitrogen 8 mg/dL (7-17); Calcium 9.2 mg/dL (8.4-10.2); Carbon Dioxide 23 mmol/L (22-30); Chloride 105 mmol/L (98-107); Estimated CRCL calculation 92 ml/min; Estimated Glomerular Filt Rate > 60; Glucose 119 mg/dL (65-110); Lipase 56 U/L (23-300); Potassium 3.7 mmol/L (3.4-5.0); Sodium 138 mmol/L (137-145)
[2021-11-05] MEDS: ONDANSETRON INJ 4 MG/2 ML VIAL IV PUSH (10:10)
[2021-11-05] MEDS: DICYCLOMINE HCL 10 MG CAPSULE 20 MG PO (10:11)
[2021-11-05] MEDS: SODIUM CHLORIDE 0.9% IV 1,000 ML 999 ML IV CONT (10:14)
[2021-11-05 10:29] VITALS: BP 113/78; PULSE 83; RESP 27; O2SAT 100
[2021-11-05 10:47] LABS: Add Urine Microscopic? YES; Appearance Urine Clear (Clear); Bacteria Urine Trace /hpf; Bilirubin Urine Negative (Negative); Blood Urine 2+ (Negative); Color Urine Yellow (Yellow); Glucose Urine UA Negative (Negative); Ketones Urine Negative (Negative); Leukocyte Esterase Ur Negative LEU/UL (Negative); Mucus Urine Rare /lpf; Nitrate Urine Negative (Negative); Protein Urine Negative (Negative); RBC Urine 21-50 /hpf (0-2); Specific Grav Ur 1.019 (1.001-1.035); Squamous Epithelial Cell Urine Rare /hpf (Few); Urobilinogen Urine Negative mg/dL (<2.0); WBC Urine 0-3 /hpf
[2021-11-05 11:12] VITALS: BP 114/75; PULSE 89; RESP 17; O2SAT 99
[2021-11-05] MEDS: LIDOCAINE HCL 2% VISC SOLN 15 ML UDC 20 ML PO (11:18)
[2021-11-05] MEDS: MAG HYDROX/AL HYDROX/SIMETH 30 ML UDC PO (11:18)
--- NOTE | 2021-11-05 12:06 | ED.ABDPAIN ---
HPI - Abdominal Pain General Chief Complaint: Abdominal Pain Stated Complaint: abd pain Time Seen by Provider: 11/05/21 09:52 Source: patient History of Present Illness HPI narrative: Patient Maynor with epigastric and right upper quadrant pain reports hip history of cholecystectomy. She had pain approximately 1 week ago seem to resolve on her own however his current episode started yesterday does not appear to be resolving so she came to the ER for evaluation. She does report she takes a second amount of NSAIDs to control her endometriosis pain. She is currently on a PPI which she started 1 week ago. There is nausea due to the pain she denies any vomiting constipation or diarrhea. She denies any urinary symptoms. Related Data Home Medications Medication Instructions Recorded Confirmed aspirin [Aspirin Low Dose] 81 mg PO DAILY 06/16/20 08/01/21 folic acid 1 mg PO DAILY 06/16/20 08/01/21 Allergies Allergy/AdvReac Type Severity Reaction Status Date / Time metronidazole AdvReac Unknown GI UPSET / Verified 11/05/21 09:20 EYES/TONGUE TURNING YELLOW morphine AdvReac Vomiting Verified 11/05/21 09:20 Review of Systems Review of Systems: CONSTITUTIONAL: Denies fever, chills, or sweats. EYES: Denies visual changes, redness, or discharge. ENT: Denies rhinorrhea, congestion, sore throat, or otalgia. CARDIOVASCULAR: Denies chest pain, palpitations, or edema. RESPIRATORY: Denies cough or dyspnea. GASTROINTESTINAL: Abdominal pain nausea GENITOURINARY: Denies dysuria or hematuria. SKIN: Denies rash or itching. MUSCULOSKELETAL: Denies back pain, joint pain, or myalgia. NEUROLOGIC: Denies headache, numbness, dizziness, or weakness. PSYCHIATRIC: Denies anxiety or depression. All systems reviewed & are unremarkable except as noted in HPI and below PMFSH Past Medical History Medical History Anxiety Depression Endometriosis GERD (gastroesophageal reflux disease) Hyperthyroidism IBS (irritable bowel syndrome) Kidney stones Migraines Pneumonia Pulmonary embolism Urinary tract infection Surgical History Surgical History Hx of cholecystectomy Hx of removal of ovary Right ovary November 2020 Family History Family History Mother Family history of Parkinson's disease Hypertension Grandparent Family history of Parkinson's disease Social History Social History Social History: Smoking status: Never smoker Second hand tobacco smoke exposure: No Alcohol intake: current Drinks per week: 2 Substance use: never Substance use type: does not use Gender identity (if verbalized by the patient): Female Sexual Orientation (if Verbalized by the Patient): Straight or Heterosexual Spiritual care concerns: No Exam Narrative: GENERAL: Well-appearing, well-nourished, and in no acute distress. HEAD: Normocephalic, atraumatic. EYES: PERRLA and EOMI. ENT: Nares clear, no rhinorrhea or epistaxis. Mucous membranes moist. NECK: Supple. No masses. No JVD CHEST: Clear to auscultation. No respiratory distress. No wheezes rales or rhonchi HEART: Regular rate and rhythm. No murmur heard. Normal peripheral pulses. ABDOMEN: Moderate tenderness in the epigastric area no rebound or guarding abdomen is soft, nondistended, normal active bowel sounds. EXTREMITIES: Normal range of motion. No edema. SKIN: Warm, dry, no rash. NEURO: No focal deficits. Alert and oriented x3. PSYCH: Normal mood and affect. Course Reevaluation(s) Reevaluation #1: Patient reports feeling somewhat improved after GI cocktailb and plan reviewed with patient. Patient is comfortable Date: 11/05/21 Time: 12:09 Vital Signs Vital signs: Vital Signs Temperature 36.7 C 11/05/21 09:10 Pulse Rate 97 02
== END 2021-11-05 12:39 | disposition home or self-care (01) ==
PROVIDERS: Emergency Provider Emergency Medicine; PCP Family Medicine
DX: R10.13 Epigastric pain (principal); K21.9 Gastro-esophageal reflux disease without esophagitis; E05.90 Thyrotoxicosis, unspecified without thyrotoxic crisis or storm; K58.9 Irritable bowel syndrome, unspecified; Z87.442 Personal history of urinary calculi; Z87.01 Personal history of pneumonia (recurrent); Z86.711 Personal history of pulmonary embolism; Z87.440 Personal history of urinary (tract) infections; Z79.82 Long term (current) use of aspirin; N20.0 Calculus of kidney
CPT/HCPCS: 36415; 74177; 80053; 81001; 81025; 83690; 85025; 96361; 96374; 99284; A9270; J2405; J7030; Q9967

== ENCOUNTER 2021-11-07 08:50 | Observation (INO) | payer BC, SELFPAY ==
--- NOTE | ~2021-11-07 | CT_ITS ---
EXAMINATION: CTA chest PE abdomen pel EXAM DATE: 11/07/2021 11:48 INDICATION: D-dimer positive. Transaminitis. TECHNIQUE: Spiral CTA of the chest (pulmonary arteries) was performed with 100 cc Omnipaque 350 intr avenous contrast injection. Images were acquired during the pulmonary arterial phase. Coronal maxi mum intensity projection 3D-reconstructions were created by the technologist on dedicated workstation . Axial, coronal and sagittal reformatted images were reviewed. Spiral CT of the abdomen and pelvis was then performed with the same intravenous contrast injection. Axial, coronal and sagittal reform atted images were reviewed. The dose-length product (DLP) for this examination was 539.16 mGy-cm. T he exposure was tailored according to patient size (auto mA exposure control), and iterative reconst ruction (ASIR) was used as additional dose reduction technique. There is no prior study for comparis on. FINDINGS: CHEST: Pulmonary arteries are well opacified and without intraluminal filling defects. No thoracic aortic dissection. The lungs are clear. There are no pleural or pericardial effusions. Tracheob ronchial tree is patent. There is no mediastinal, hilar or axillary lymphadenopathy. There is no pneumothorax. Heart normal in size. No evidence of coronary arterial calcification. There is con genital pectus excavatum. ABDOMEN PELVIS: The liver, spleen, adrenal glands and pancreas are unremarkable. There are cholecyst ectomy clips. There is mild biliary dilation, not uncommon for postcholecystectomy status. Equivocal mild fat stranding at the shai hepatis, acute cholangitis not excludable. No calcified choledocholit hiasis identified. Portal and splenic veins are patent. Kidneys enhance symmetrically. There is no hydronephrosis. The uterus is retroverted and morphologically normal. The bladder is unremarkable . There is no retroperitoneal or pelvic lymphadenopathy. There are no findings to suggest appendicitis. The stomach and small bowel are unremarkable. There is expected amount of colonic stool. No free intraperitoneal gas. Chronic lateral L5 spondylolysi s without spondylolisthesis. IMPRESSION: 1. Mild biliary duct dilation, common finding following cholecystectomy. Acute cholangitis not excl udable. No calcified choledocholithiasis. 2. Otherwise unremarkable CT pulmonary abdomen pelvis exam. Reviewed, dictated and finalized at location B. L MARKETING ASSISTANT IMPRESSION: 1. Mild biliary duct dilation, common finding following cholecystectomy. Acut e cholangitis not excludable. No calcified choledocholithiasis. 2. Otherwise unremarkable CT pulmonary abdomen pelvis exam.
--- NOTE | ~2021-11-07 | XR_ITS ---
EXAMINATION: XR ERCP DATE: 11/08/2021 13:25 INDICATION: Choledocholithiasis. TECHNIQUE: 4 spot fluoroscopic images of the right upper quadrant were obtained during endoscopic ret rograde cholangiopancreatography (ERCP). Fluoroscopy exposure time was 152 seconds. COMPARISON: MRCP 11/07/2021 FINDINGS: The endoscope is in the second portion the duodenum. Images demonstrate contrast opacificat ion of the common duct, which is dilated. Images demonstrate balloon sweeping of the common bile duct and a stone in the common bile duct. IMPRESSION: 1. Stone in the common bile duct with duct dilatation. Please refer to the ERCP procedure note for ad ditional details. Reviewed, dictated and finalized at location A. X PROGRAMMER IMPRESSION: 1. Stone in the common bile duct with duct dilatation. Please refer to the ERCP procedure note for additional details.
--- NOTE | ~2021-11-07 | MR_ITS ---
EXAMINATION: MR MRCP wo/w con/w 3D wo ind DATE: 11/07/2021 16:35 INDICATION: Abnormal liver function tests. TECHNIQUE: Magnetic resonance imaging (MRI) of the abdomen was performed without and with 13 mL Multi Tawana intravenous contrast. Sequences included coronal T2-weighted FS FSE, coronal T2-weighted FSE, a xial T1-weighted LAVA, coronal FS FIESTA, axial dual-echo T1-weighted SPGR, coronal lava-FLEX, sagitt al T2-weighted FSE, axial T2-weighted FSE, and axial DWI. Thick-slab T2-weighted FSE images were obta ined for magnetic resonance cholangiopancreatography (MRCP). Maximum intensity projection 3-D reconst ructions of the volumetric data were created by the technologist. Postcontrast sequences included cor onal LAVA-flex and time course of axial T1-weighted LAVA. COMPARISON: CT 11/07/2021, 11/05/2021, 06/16/20 FINDINGS: ABDOMEN MRI: There is mild intrahepatic and extrahepatic biliary duct dilatation. The gallbladder is absent. The spleen, pancreas, adrenal glands, and left kidney are normal. There is a 6 mm cyst in rig ht kidney. There are no dilated loops of bowel. There are no pathologically enlarged lymph nodes. The re is no free intraperitoneal fluid. Superficial to the right anterior abdominal musculature, there i s an 11 mm nonenhancing mass with increased T1-weighted signal intensity, new from 06/16/20, likely a hematoma. ABDOMEN MRCP: There is mild intrahepatic and extrahepatic biliary duct dilatation. The common duct me asures 11 mm. There is a 4 mm stone in the common bile duct. IMPRESSION: 1. 4 mm stone in the common bile duct with mild intrahepatic and extrahepatic biliary duct dilatation . 2. 11 mm mass superficial to the anterior right abdominal musculature, likely a hematoma. Reviewed, dictated and finalized at location E. STANT SOFTBALL COACH IMPRESSION: 1. 4 mm stone in the common bile duct with mild intrahepatic and extrahepatic b iliary duct dilatation. 2. 11 mm mass superficial to the anterior right abdominal musculature, likely a hematoma.
--- NOTE | ~2021-11-07 | US_ITS ---
EXAMINATION: US abdomen limited EXAM DATE: 11/07/2021 10:43 INDICATION: Transaminitis/Epigastric Pain X 4 Days. TECHNIQUE: Multiple grayscale and Doppler images of the abdomen right upper quadrant were obtained (b y a technologist who performed the scan) and subsequently reviewed. There is no prior study for maryam schroeder. FINDINGS: The pancreatic head and body are normal in appearance. The pancreatic tail is not visualized. The l iver has normal echogenicity and contour. There are no focal liver lesions identified. There is no evidence of intrahepatic biliary duct dilation. Portal venous flow was seen in the hepatopedal, nor mal direction and has normal Doppler waveform. No right-sided hydronephrosis. Common bile duct measures 9 mm, which is mildly dilated but common finding for postcholecystectomy st atus. The gallbladder fossa is unremarkable. IMPRESSION: Mild biliary duct dilation, common finding for postcholecystectomy status. Reviewed, dictated and finalized at location B. E DIRECTOR
--- NOTE | ~2021-11-07 | XR_ITS ---
EXAMINATION: XR chest 1V portable EXAM DATE: 11/07/2021 10:11 INDICATION: Epigastric pain. TECHNIQUE: Portable AP frontal chest x-ray was obtained. Comparison is made to prior examination from 08/03/2021. FINDINGS: The lungs are clear. There are no pleural effusions. Cardiac silhouette is prominent but magnified on this AP technique. There is no pneumothorax suspected. The bones and soft tissues are unremarkable. IMPRESSION: No acute cardiopulmonary findings. Reviewed, dictated and finalized at location B. ING THERAPY DIRECTOR
[2021-11-07 08:57] VITALS: BP 116/75; PULSE 79; RESP 18; TEMP 37.1; O2SAT 100
[2021-11-07 09:32] LABS: Basophils Absolute Auto 0.1 K/mm3 (0.0-0.1); Basophils Percent Auto 0.6 % (0.2-1.2); Hematocrit 46.1 % (37.0-47.0); Hemoglobin 15.2 g/dL (12.0-15.0); Immature Granulocyte Absolute 0.07 K/mm3 (0.00-0.031); Immature Granulocyte Percent A 0.6 % (0-0.5); Lymphocytes Absolute Auto 0.98 K/mm3 (0.9-3.2); Lymphocytes Percent Auto 7.9 % (18.3-44.2); Mean Corpuscular Hemoglobin 29.4 pg (26-34); Mean Corpuscular Volume 89.2 fl (80-100); Mean Platelet Volume 8.7 fl (7.4-10.4); Monocytes Absolute Auto 0.5 K/mm3 (0.1-0.6); Monocytes Percent Auto 3.9 % (2.6-8.5); Neutrophils Absolute Auto 10.8 K/mm3 (1.3-6.7); Platelet Count Result 418 k/mm3 (150-375); Red Blood Count 5.17 M/mm3 (4.2-5.4); Red Cell Distribution Width 13.4 % (11.5-14.5); White Blood Count 12.4 K/mm3 (4.5-10.0)
[2021-11-07 09:39] LABS: Add Urine Microscopic? YES; Appearance Urine Clear (Clear); Bilirubin Urine 2+ (Negative); Blood Urine 2+ (Negative); Color Urine Amber (Yellow); Glucose Urine UA Negative (Negative); Ketones Urine 1+ mg/dL (Negative); Leukocyte Esterase Ur Negative LEU/UL (Negative); Mucus Urine Rare /lpf; Nitrate Urine Negative (Negative); Protein Urine 1+ mg/dL (Negative); RBC Urine >75 /hpf (0-2); Specific Grav Ur 1.023 (1.001-1.035); Squamous Epithelial Cell Urine Occasional /hpf (Few)
[2021-11-07 10:00] LABS: Alkaline Phosphatase 309 U/L (38-126); Anion Gap 11 mmol/L (8-16); Aspartate Amino Transferase 473 U/L (14-36); Blood Urea Nitrogen 8 mg/dL (7-17); Calcium 8.7 mg/dL (8.4-10.2); Carbon Dioxide 23 mmol/L (22-30); Chloride 102 mmol/L (98-107); Estimated CRCL calculation 80 ml/min; Estimated Glomerular Filt Rate > 60; Glucose 108 mg/dL (65-110); Lipase 60 U/L (23-300); Potassium 3.4 mmol/L (3.4-5.0); Sodium 136 mmol/L (137-145)
--- NOTE | 2021-11-07 10:04 | ECG_ITS ---
Measurements Intervals [place] Rate: 77 P: 67 [place]: 150 QRS: 64 QRSD: 77 T: 15 QT: 417 QTc: 472 Interpretive Statements SINUS RHYTHM WITH SINUS ARRHYTHMIA POSSIBLE LEFT ATRIAL ENLARGEMENT BORDERLINE T WAVE ABNORMALITY- ANT/INF LEADS BORDERLINE ECG Electronically Signed On 11-07-2021 12:35:01 CHIEF OF PLANNING by Gerardo Cruz D.O.
--- NOTE | 2021-11-07 10:08 | ED.GENADULT ---
HPI - General Adult General Chief complaint: Abdominal Pain Stated complaint: Abd Pain Time Seen by Provider: 11/07/21 09:07 Source: patient Mode of arrival: ambulatory Limitations: no limitations History of Present Illness HPI narrative: Patient presents for evaluation of epigastric pain. She states that her symptoms started three days ago. Pain is constant, squeezing, rate 8/10 in severity. She has associated nausea and vomiting. She has experienced hot flashes and chills but attributes this to the degree of pain in which she has been. She has had decreased oral intake and states amount of urine she is producing is decreased. She denies other urinary symptoms. She also states her bowel movements have decreased in size although her frequency is unchanged. No blood or mucous in the stool. Surgical history positive for oophorectomy, salpingectomy and cholecystectomy. She was seen here two days ago for the same symptoms and had CT scan at that time which was normal. She was discharged with sucralfate. She has also been taking a PPI. She states that she takes quite a bit of ibuprofen for pain associated with endometriosis. She states she was told to stop as she may have an ulcer. She attempted to contact Dr Johnson's office for an appointment unsuccessfully. Of note, she also has a hx of PE. She is no longer anticoagulated. She does have some SOB but denies any chest pain or cough. She has received both doses of her COVID vaccination and has also received a flu shot this year. No recent sick contacts to her knowledge. She had an endoscopy [place] [address] Alonzo that was normal. She drinks rarely. Last ETOH intake was one month ago and states that she only had one glass of wine at that time. Her partner does not have hepatitis. She states she does not have risk factors for such. Related Data Home Medications Medication Instructions Recorded Confirmed aspirin [Aspirin Low Dose] 81 mg PO DAILY 06/16/20 08/01/21 folic acid 1 mg PO DAILY 06/16/20 08/01/21 Allergies Allergy/AdvReac Type Severity Reaction Status Date / Time metronidazole AdvReac Unknown GI UPSET / Verified 11/05/21 09:20 EYES/TONGUE TURNING YELLOW morphine AdvReac Vomiting Verified 11/05/21 09:20 Review of Systems Review of Systems: CONSTITUTIONAL: Reports hot flashes and chills. EYES: Denies visual changes, redness, or discharge. ENT: Denies rhinorrhea, congestion, sore throat, or otalgia. CARDIOVASCULAR: Denies chest pain, palpitations, or edema. RESPIRATORY: Reports shortness of breath. Denies cough GASTROINTESTINAL: Reports abdominal pain, nausea, vomiting. GENITOURINARY: Reports decreased urinary output. Denies dysuria or hematuria. SKIN: Denies rash or itching. MUSCULOSKELETAL: Denies back pain, joint pain, or myalgia. NEUROLOGIC: Denies headache, numbness, dizziness, or weakness. PSYCHIATRIC: Denies anxiety or depression. [facility] Past Medical History Medical History Anxiety Depression Endometriosis GERD (gastroesophageal reflux disease) Hyperthyroidism IBS (irritable bowel syndrome) Kidney stones Migraines Pneumonia Pulmonary embolism Urinary tract infection Surgical History Surgical History Hx of cholecystectomy Hx of removal of ovary Right ovary November 2020 Family History Family History Mother Family history of Parkinson's disease Hypertension Grandparent Family history of Parkinson's disease Social History Social History Social History: Smoking status: Never smoker Second hand tobacco smoke exposure: No Alcohol intake: current Drinks per week: 2 Substance use: never Substance use type: does not use Gender identity (if verbalized by the patie
[2021-11-07 10:31] LABS: Alanine Aminotransferase 865 U/L (4-35)
[2021-11-07] MEDS: SODIUM CHLORIDE 0.9% IV 1,000 ML 999 ML IV CONT (10:41)
[2021-11-07] MEDS: FAMOTIDINE 20 MG/2 ML VIAL IV PUSH (10:42)
[2021-11-07] MEDS: MORPHINE SULFATE (*CRX) 2 MG/ML INJ IV PUSH ×3 (10:42→21:24)
[2021-11-07] MEDS: ONDANSETRON INJ 4 MG/2 ML VIAL IV PUSH ×3 (10:42→21:24)
[2021-11-07 10:45] VITALS: BP 117/82; PULSE 93; RESP 18; O2SAT 100
[2021-11-07 11:06] LABS: INR 1.1; Prothrombin Time 14.4 Seconds (11.1-14.7)
[2021-11-07 11:07] LABS: Partial Thromboplastin Time 27.7 SECONDS (22.3-36.8)
[2021-11-07 11:10] LABS: Troponin I < 0.012 ng/mL (0.000-0.034)
[2021-11-07 11:26] LABS: Lactic Acid Reflex 0.8 mmol/L (0.7-2.1)
[2021-11-07 11:59] LABS: SARS-CoV-2 RNA PCR Negative
[2021-11-07 13:07] LABS: Bilirubin Direct 3.8 mg/dL (0-0.3); Bilirubin Indirect 2.1 mg/dL (0-1.1)
[2021-11-07 13:08] LABS: Troponin I < 0.012 ng/mL (0.000-0.034)
--- NOTE | 2021-11-07 13:15 | PM.IMHP ---
H&P: HPI History of Present Illness Date/Time: 11/07/21 13:15 Chief Complaint: Epigastric pain. Narrative: This is a pleasant 41-year-old female with status post cholecystectomy in 2004 with history of pulmonary embolism and kidney stones who presented to the emergency department this morning for evaluation of epigastric pain. Approximately 3 days ago she developed a squeezing and pressure like pain in the the epigastric region that has been nearly constant since the outset though tends to come and go in waves of intensity. At its worst she rates the pain 8/10 and she is not noticed any significant alleviating factors. Food may be an aggravating factor. Associated symptoms include chills, sweats, nausea, and shortness of breath due to severe pain. She was seen in the emergency department 2 days ago for the symptoms at which time her labs and imaging were fairly unremarkable. It was felt that she perhaps had gastritis or even ulcers due to NSAID use and she was able to be discharged home. Unfortunately her symptoms have not improved and in fact they have gotten worse. She has been taking Tylenol and thinks that perhaps it might take the edge off for only a short period of time. She attempted to eat something yesterday however was unable to keep that down. Labs today showed a significant elevation in her transaminases with hyperbilirubinemia and subsequent right upper quadrant ultrasound and abdominal CT showed mild biliary duct dilatation of 9 mm, not uncommon for a post cholecystectomy status. she is being admitted in this setting. At the time my evaluation she is resting comfortably and is feeling better with pain medications. Review of Systems Review of Systems: Twelve systems were reviewed. No fever. No recent cold or flu symptoms. No chest pain. She did is have shortness of breath when her pain is severe, likely due to splinting as deep breaths make the pain worse. She had a normal bowel movement a couple of days ago. Patient also endorses abdominal belching and bloating. She has not taken ibuprofen but has been taking Tylenol at home without much help. No pruritus. Except as documented, all other systems were reviewed and are negative. 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 Irritable bowel syndrome Kidney stones Migraines Pneumonia Pulmonary embolism (12/2018) Urinary tract infection Surgical History Surgical History (Updated 11/07/21 @ 13:58 by Danica Staley PA-C) History of cholecystectomy History of right salpingo-oophorectomy (11/2020) Family History Family History Mother Family history of Parkinson's disease Hypertension Grandparent Family history of Parkinson's disease Social History Social History (Updated 11/07/21 @ 23:19 by Danica Staley PA-C) Social History: Surrogate decision maker: Cezar Cornelius, . Code status: Full code. Smoking status: Never smoker Second hand tobacco smoke exposure: No Alcohol intake: current Drinks per week: 2 Substance use: never Substance use type: does not use Additional living arrangements comments: Lives in [place] with family. 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 Meds Home Medications and Allergies Home Medications Medication Instructions Recorded Confirmed Type aspirin [Aspirin Low Dose] 81 mg PO DAILY 06/16/20 11/07/21 History folic acid 1 mg PO DAILY 06/16/20 11/07/21 History famotidine [Pepcid] 40 mg PO DAILY 11/07/21 11/07/21 History sucralfate [Carafate] 1 g PO DAILY 11/07/21 11/07/21 History Allergies Allergy/AdvReac Type Severity Reaction Status Date / Time metronidazole AdvReac Unknown GI UPSET / Verified 11/05/21 09:20 EYES/TONG
[2021-11-07] MEDS: SODIUM CHLORIDE 0.9% IV 1,000 ML 150 ML IV CONT (13:28)
[2021-11-07 13:29] VITALS: BP 109/70; PULSE 87; RESP 18; O2SAT 100
[2021-11-07 14:19] LABS: Hepatitis B Surface Antigen Negative (Negative)
[2021-11-07 14:25] LABS: HAV RESULT Negative (Negative); Hepatitis B Core IgM Result Negative (Negative)
[2021-11-07 14:30] VITALS: BP 119/67; PULSE 82; RESP 16; TEMP 36.5; O2SAT 100
[2021-11-07 14:36] LABS: Hepatitis C Virus Antibody Negative (Negative)
[2021-11-07 22:00] VITALS: BP 104/58; PULSE 75; RESP 16; TEMP 36.8; O2SAT 100
[2021-11-08] VITALS (11 sets, daily range): BP systolic 96–140; BP diastolic 60–99; PULSE 60–82; RESP 15–20; TEMP 35.8–37.1; O2SAT 98–100
[2021-11-08] MEDS: ONDANSETRON INJ 4 MG/2 ML VIAL IV PUSH (02:59)
[2021-11-08] MEDS: MORPHINE SULFATE (*CRX) 2 MG/ML INJ IV PUSH (03:00)
[2021-11-08 07:35] LABS: Basophils Absolute Auto 0.1 K/mm3 (0.0-0.1); Basophils Percent Auto 0.8 % (0.2-1.2); Eosinophils Percent Auto 0.3 % (0-4.4); Hematocrit 38.9 % (37.0-47.0); Hemoglobin 12.5 g/dL (12.0-15.0); Immature Granulocyte Absolute 0.04 K/mm3 (0.00-0.031); Immature Granulocyte Percent A 0.5 % (0-0.5); Lymphocytes Absolute Auto 1.54 K/mm3 (0.9-3.2); Lymphocytes Percent Auto 17.8 % (18.3-44.2); Mean Corpuscular HGB Conc 32.1 g/dl (32-36); Mean Corpuscular Hemoglobin 29.1 pg (26-34); Mean Corpuscular Volume 90.5 fl (80-100); Mean Platelet Volume 9.1 fl (7.4-10.4); Monocytes Absolute Auto 0.5 K/mm3 (0.1-0.6); Monocytes Percent Auto 5.8 % (2.6-8.5); Neutrophils Absolute Auto 6.5 K/mm3 (1.3-6.7); Neutrophils Percent Auto 74.8 % (45.5-73.1); Platelet Count Result 352 k/mm3 (150-375); Red Cell Distribution Width 13.9 % (11.5-14.5); White Blood Count 8.6 K/mm3 (4.5-10.0)
[2021-11-08 07:54] LABS: Alanine Aminotransferase 468 U/L (4-35); Albumin Level 3.7 g/dL (3.5-5.1); Alkaline Phosphatase 191 U/L (38-126); Anion Gap 9 mmol/L (8-16); Aspartate Amino Transferase 140 U/L (14-36); Blood Urea Nitrogen 9 mg/dL (7-17); Calcium 7.2 mg/dL (8.4-10.2); Carbon Dioxide 17 mmol/L (22-30); Chloride 108 mmol/L (98-107); Estimated CRCL calculation 92 ml/min; Estimated Glomerular Filt Rate > 60; Glucose 73 mg/dL (65-110); Magnesium 2.2 mg/dL (1.6-2.3); Potassium 4.1 mmol/L (3.4-5.0); Sodium 134 mmol/L (137-145)
[2021-11-08 08:45] LABS: Thyroid Stimulating Hormone Reflex 0.675 uIU/mL (0.465-4.68)
[2021-11-08] MEDS: FAMOTIDINE 20 MG/2 ML VIAL IV PUSH ×2 (09:42→20:49)
--- NOTE | 2021-11-08 11:30 | PC.NURSE ---
To GI Lab per junior, IV #20 in [facility]. Report given to Patricia.
--- NOTE | 2021-11-08 11:58 | WPDANESEPPF ---
Anes - Initial Pre Proc Eval Procedure: Operation Date: 11/08/21 15:30 Proposed Procedures p Endoscopic Retro Cholangiopancreatogram - Yasmany Watson MD Date/Time: 11/08/21 11:58 Surgeon: Neel Cota MD Pre Op Diagnosis: Transaminitis/Hyperbilirubinemia Patient Data Age: 41 Gender: F Height: 1.63 m Weight: 63.6 kg Last Vital Signs Temp 98.7 F 11/08/21 05:49 Pulse 72 11/08/21 05:49 Resp 16 11/08/21 05:49 BP 96/61 L 11/08/21 05:49 Pulse Ox 100 11/08/21 05:49 Allergies Allergy/AdvReac Type Severity Reaction Status Date / Time metronidazole AdvReac Unknown GI UPSET / Verified 11/08/21 12:06 EYES/TONGUE TURNING YELLOW morphine AdvReac Vomiting Verified 11/08/21 12:06 Home Medications Medication Instructions Recorded Confirmed Type aspirin [Aspirin Low Dose] 81 mg PO DAILY 06/16/20 11/07/21 History folic acid 1 mg PO DAILY 06/16/20 11/07/21 History famotidine [Pepcid] 40 mg PO DAILY 11/07/21 11/07/21 History sucralfate [Carafate] 1 g PO DAILY 11/07/21 11/07/21 History Laboratory Tests 11/07/21 11/07/21 11/07/21 09:24 11:01 12:36 WBC RBC Hgb Hct MCV MCH MCHC RDW Plt Count MPV Immature Gran % (Auto) Neut % (Auto) Lymph % (Auto) [place] % (Auto) Eos % (Auto) Baso % (Auto) Lymph # (Auto) [place] # (Auto) Eos # (Auto) Baso # (Auto) Abs Immat Gran (auto) Absolute Neuts (auto) Absolute Nucleated RBC Nucleated RBC % Sodium Potassium Chloride Carbon Dioxide Anion Gap BUN Creatinine Estim Creat Clear Calc Estimated GFR Glucose Calcium Magnesium Total Bilirubin Direct Bilirubin 3.8 mg/dL H mg/dL (0-0.3) Indirect Bilirubin 2.1 mg/dL H mg/dL (0-1.1) AST ALT Alkaline Phosphatase Troponin I < 0.012 ng/mL ng/mL (0.000-0.034) Total Protein Albumin TSH (Reflex) Hepatitis A IgM Ab Hep Bs Antigen Hep B Core IgM Ab Hepatitis C Ab Screen SARS-CoV-2 RNA (RT-PCR) Negative 11/07/21 11/08/21 11/08/21 13:09 06:44 06:44 WBC 8.6 K/mm3 K/mm3 (4.5-10.0) RBC 4.30 M/mm3 M/mm3 (4.2-5.4) Hgb 12.5 g/dL g/dL (12.0-15.0) Hct 38.9 % % (37.0-47.0) MCV 90.5 fl fl (80-100) MCH 29.1 pg pg (26-34) MCHC 32.1 g/dl g/dl (32-36) RDW 13.9 % % (11.5-14.5) Plt Count 352 k/mm3 k/mm3 (150-375) MPV 9.1 fl fl (7.4-10.4) Immature Gran % (Auto) 0.5 % % (0-0.5) Neut % (Auto) 74.8 % H % (45.5-73.1) Lymph % (Auto) 17.8 % L % (18.3-44.2) [place] % (Auto) 5.8 % % (2.6-8.5) Eos % (Auto) 0.3 % % (0-4.4) Baso % (Auto) 0.8 % % (0.2-1.2) Lymph # (Auto) 1.54 K/mm3 K/mm3 (0.9-3.2) [place] # (Auto) 0.5 K/mm3 K/mm3 (0.1-0.6) Eos # (Auto) 0.0 K/mm3 K/mm3 (0-0.3) Baso # (Auto) 0.1 K/mm3 K/mm3 (0.0-0.1) Abs Immat Gran (auto) 0.04 K/mm3 H K/mm3 (0.00-0.031) Absolute Neuts (auto) 6.5 K/mm3 K/mm3 (1.3-6.7) Absolute Nucleated RBC 0.0 K/mm3 K/mm3 (0.0-0.012) Nucleated RBC % 0.0 % % (0.0-0.2) Sodium 134 mmol/L L mmol/L (137-145) Potassium 4.1 mmol/L mmol/L (3.4-5.0) Chloride 108 mmol/L H mmol/L (98-107) Carbon Dioxide 17 mmol/L L mmol/L (22-30) Anion Gap 9 mmol/L mmol/L
[2021-11-08] MEDS: LACTATED RINGERS 1,000 ML 150 ML IV CONT (12:30)
--- NOTE | 2021-11-08 12:32 | WPDGICN ---
Assessment and Plan Assessment and plan (1) Jaundice: Code(s): R17 - Unspecified jaundice Status: Acute Assessment and Plan: this is due to retained stone in bile duct. will proceed with ercp- discussed with patient about risk and benefits, she is agreeable she was given antibiotics and now npo status (2) Choledocholithiasis: Code(s): K80.50 - Calculus of bile duct without cholangitis or cholecystitis without obstruction Status: Acute Assessment and Plan: proceed with ercp in order to clear bile duct (3) Transaminitis: Code(s): R74.01 - Elevation of levels of liver transaminase levels Status: Acute Assessment and Plan: biliary related, recent set of liver enzymes normal hepatitis panel negative (4) RUQ pain: Code(s): R10.11 - Right upper quadrant pain Status: Acute (5) Thrombocytosis: Code(s): D75.839 - Thrombocytosis, unspecified Status: Inactive Assessment and Plan: chronic, unchanged (6) History of cholecystectomy: Code(s): Z90.49 - Acquired absence of other specified parts of digestive tract Status: Inactive GI Consult Note Consult date/time: 11/08/21 12:33 Reason for consult: jaundice, ruq pain, choledocholithiasis HPI: Mayda Cornelius is a 41 year old female with previous cholecystectomy in 2004, remote pulmonary embolism now on baby aspirin and kidney stones, thrombocytosis on folic acid, GERD with EGD in the past. She came to the emergency department with severe epigastric pain with radiation to upper ruq. This started about 1 week ago and she had two episodes with severe pain, initially described as squeezing and pressure like, at its worst she rates the pain 8/10. She came here and told that probably had ulcer, given omeprazole and sent home but pain came back therefore she returned to hospital. Blood work noted new elevation of liver enzymes (bili 8, transaminases 400-800's) few days ago had normal liver enzymes. Also had nausea and one episode of emesis. She also noted dark urine and yellow sclerae. She had abdominal CT that was reviewed, showed mild biliary duct dilatation of 9 mm, not uncommon for a post cholecystectomy status. MRCP confirmed that she has small stone in distal bile duct. Denies alcohol abuse, previous history of liver disease. Review of Systems Constitutional: Constitutional: Denies night sweats Eyes: Eyes: Denies blurry vision ENT: Reports Normal hearing present Cardiovascular: Cardiovascular: Denies chest pain Respiratory: Respiratory: Denies cough Gastrointestinal: Gastrointestinal: Reports abdominal pain, Reports nausea and Reports vomiting Genitourinary: Comments: dark urine Musculoskeletal: Musculoskeletal: Denies neck pain Integumentary/Breasts: Skin/Breast: Denies dry skin Neurologic: Denies headache(s) Psychiatric: Psychiatric: Denies behavioral changes [facility] Past Medical History Medical History (Updated 11/08/21 @ 12:39 by Yasmany Watson MD) Anxiety Choledocholithiasis Depression Endometriosis Gastroesophageal reflux disease Hyperthyroidism 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 Irritable bowel syndrome Kidney stones Migraines MTHFR gene mutation Pneumonia Pulmonary embolism (12/2018) RUQ pain Thrombocytosis Followed by Dr. Rizo. On daily folic acid. Urinary tract infection Surgical History Surgical History (Updated 11/08/21 @ 12:39 by Yasmany Watson MD) History of cholecystectomy History of right salpingo-oophorectomy (11/2020) Family History Family History Mother Family history of Parkinson's disease Hypertension Grandparent Family history of Parkinson's disease Social History Social History (Updated 11/07/21 @ 23:19 by Danica Staley PA-C) Social History: Surrogate decision maker: Cezar Cornelius, . Code status: Full code. Job
[2021-11-08] MEDS: INDOMETHACIN 50 MG SUPP.RECT RECTAL (12:51)
--- NOTE | 2021-11-08 12:58 | PM.IMPN ---
Progress Note: A&P Assessment and Plan (1) Abdominal pain: Qualifiers: Abdominal location: epigastric Qualified Code(s): R10.13 - Epigastric pain Code(s): R10.9 - Unspecified abdominal pain Status: Acute Assessment and Plan: Concerning for choledocholithiasis though only mild dilatation noted on imaging. Peptic ulcer disease, cholangitis, mononucleosis, and acute hepatitis are also a consideration though seem less likely. She will receive a 1 time dose of Zosyn pending MRCP; if that is negative then we will continue antibiotics. She will be NPO after midnight for possible procedure tomorrow. Dr. Goodman has been consulted and his input is appreciated. 11/08/2021: interval history: 41-year-old female presented with epigastric pain, jaundice and elevated LFT, patient had MRCP showed patient has 4 mm stone in the common bile duct with mild intrahepatic and extrahepatic biliary duct dilatation. seen by GI suspect a jaundice stemming from retained bile duct stone recommending ERCP to remove the stone in the duct, patient is scheduled for the procedure later this afternoon will follow-up and further recommendation to follow. (2) Transaminitis: Code(s): R74.01 - Elevation of levels of liver transaminase levels Status: Acute Assessment and Plan: Plan is as detailed above. Check hepatitis panel for completeness sake. (3) Jaundice: Code(s): R17 - Unspecified jaundice Status: Acute Assessment and Plan: As above. Subjective Date/time seen: 11/08/21 12:58 Chief Complaint: Epigastric pain. HPI: Narrative: This is a pleasant 41-year-old female with status post cholecystectomy in 2004 with history of pulmonary embolism and kidney stones who presented to the emergency department this morning for evaluation of epigastric pain. Approximately 3 days ago she developed a squeezing and pressure like pain in the the epigastric region that has been nearly constant since the outset though tends to come and go in waves of intensity. At its worst she rates the pain 8/10 and she is not noticed any significant alleviating factors. Food may be an aggravating factor. Associated symptoms include chills, sweats, nausea, and shortness of breath due to severe pain. She was seen in the emergency department 2 days ago for the symptoms at which time her labs and imaging were fairly unremarkable. It was felt that she perhaps had gastritis or even ulcers due to NSAID use and she was able to be discharged home. Unfortunately her symptoms have not improved and in fact they have gotten worse. She has been taking Tylenol and thinks that perhaps it might take the edge off for only a short period of time. She attempted to eat something yesterday however was unable to keep that down. Labs today showed a significant elevation in her transaminases with hyperbilirubinemia and subsequent right upper quadrant ultrasound and abdominal CT showed mild biliary duct dilatation of 9 mm, not uncommon for a post cholecystectomy status. she is being admitted in this setting. At the time my evaluation she is resting comfortably and is feeling better with pain medications. 11/08/2021: interval history: 41-year-old female presented with epigastric pain, jaundice and elevated LFT, patient had MRCP showed patient has 4 mm stone in the common bile duct with mild intrahepatic and extrahepatic biliary duct dilatation. seen by GI suspect a jaundice stemming from retained bile duct stone recommending ERCP to remove the stone in the duct, patient is scheduled for the procedure later this afternoon will follow-up and further recommendation to follow. Review of Systems Review of Systems: All systems reviewed & are unremarkable except as noted in HPI and below Exam Narrative: Patient is comfortable, NAD HEENT: eyes are clear and none icteric LUNGS: normal respiratory effort ABD: not distended Lower extremities: no edema SKIN:
--- NOTE | 2021-11-08 14:40 | PC.NURSE ---
Returned from GI Lab via stretcher. Patient denied nausea/vomiting and stated she felt really sleepy still . Denied pain at this time.
[2021-11-09 06:00] VITALS: BP 106/67; PULSE 62; RESP 16; TEMP 36.6; O2SAT 98
[2021-11-09 06:39] LABS: Hematocrit 36.4 % (37.0-47.0); Hemoglobin 11.9 g/dL (12.0-15.0); Mean Corpuscular HGB Conc 32.7 g/dl (32-36); Mean Corpuscular Hemoglobin 29.2 pg (26-34); Mean Corpuscular Volume 89.2 fl (80-100); Mean Platelet Volume 8.9 fl (7.4-10.4); Platelet Count Result 350 k/mm3 (150-375); Red Blood Count 4.08 M/mm3 (4.2-5.4); Red Cell Distribution Width 13.7 % (11.5-14.5); White Blood Count 5.5 K/mm3 (4.5-10.0)
[2021-11-09 06:55] LABS: Alanine Aminotransferase 366 U/L (4-35); Albumin Level 3.5 g/dL (3.5-5.1); Alkaline Phosphatase 165 U/L (38-126); Anion Gap 10 mmol/L (8-16); Aspartate Amino Transferase 121 U/L (14-36); Blood Urea Nitrogen 6 mg/dL (7-17); Calcium 7.2 mg/dL (8.4-10.2); Carbon Dioxide 20 mmol/L (22-30); Chloride 107 mmol/L (98-107); Estimated CRCL calculation 92 ml/min; Estimated Glomerular Filt Rate > 60; Glucose 102 mg/dL (65-110); Magnesium 2.2 mg/dL (1.6-2.3); Potassium 3.8 mmol/L (3.4-5.0); Sodium 137 mmol/L (137-145)
[2021-11-09] MEDS: FAMOTIDINE 20 MG/2 ML VIAL IV PUSH (08:23)
--- NOTE | 2021-11-09 08:25 | WPDGIPROGNO ---
Progress Note: A&P Assessment and Plan (1) Choledocholithiasis: Code(s): K80.50 - Calculus of bile duct without cholangitis or cholecystitis without obstruction Status: Acute Assessment and Plan: treated yesterday with ercp, she is doing better today. will advance to low fat diet and she can go home later today liver enzymes trending down she can follow-up in office in 3-4 weeks with cmp prior her appointment (2) RUQ pain: Code(s): R10.11 - Right upper quadrant pain Status: Acute Assessment and Plan: almost gone (3) Transaminitis: Code(s): R74.01 - Elevation of levels of liver transaminase levels Status: Acute Assessment and Plan: trending down (4) Nausea: Code(s): R11.0 - Nausea Status: Acute Subjective Date/time seen: 11/09/21 08:25 Interval history: ercp yesterday with successful removal of small stones, she is doing better today with only mild soreness if upper abdomen, tolerated liquid diet Review of Systems Review of Systems: All systems reviewed & are unremarkable except as noted in HPI and below Exam Const: General: comfortable and no acute distress HENMT: General nose exam: Normal nares present Eyes: General: appearance normal, both eyes and all related structures Neck: Neck: no JVD Resp: Auscultation: clear to auscultation bilaterally Cardio: Rate: regular rate Rhythm: regular rhythm GI: Inspection: non-distended GI Palp: Yes Soft to palpation Skin: General skin exam: normal color Neuro: General: gait normal Speech: normal speech Extrem: General: normal to inspection Psych: Mental Status: mental status grossly normal Objective Data Vital Signs Vital Signs: Vital Signs - 24 hr 11/08/21 11:48 11/08/21 13:29 11/08/21 13:39 Temperature 96.5 F L 97.1 F L Pulse Rate 82 71 60 Respiratory Rate 18 15 16 Blood Pressure 109/79 122/80 126/88 Pulse Oximetry 99 100 100 11/08/21 13:49 11/08/21 13:59 11/08/21 14:09 Temperature Pulse Rate 77 69 75 Respiratory Rate 20 20 20 Blood Pressure 140/99 H 134/92 H 136/78 Pulse Oximetry 100 100 100 11/08/21 14:19 11/08/21 14:29 11/08/21 15:36 Temperature 97.2 F L Pulse Rate 70 72 66 Respiratory Rate 20 17 18 Blood Pressure 138/99 H 140/95 H 112/65 Pulse Oximetry 100 100 99 11/08/21 21:51 11/09/21 06:00 Temperature 97.9 F 97.9 F Pulse Rate 73 62 Respiratory Rate 16 16 Blood Pressure 108/60 106/67 Pulse Oximetry 98 98 Intake/Output Intake/Output: Intake & Output 11/06/21 11/07/21 11/08/21 11/09/21 23:59 23:59 23:59 23:59 Intake Total 2050 325 750 Output Total 0 1000 700 Balance 2050 -675 50 Meds/Results Medications: Active Medications Generic Name Dose Route Start Last Admin Trade Name Freq PRN Reason Stop Dose Admin Famotidine 20 mg 11/07/21 21:00 11/09/21 08:23 Famotidine 20 Mg/2 Ml Vial IV PUSH 20 mg Q12HR LINDSAY Administration Morphine Sulfate 2 mg 11/07/21 13:30 11/08/21 03:00 Morphine Sulfate (*Crx) 2 Mg/Ml Inj IV PUSH 2 mg Q2H PRN Administration Pain Rated 7-10 Ondansetron HCl 4 mg 11/07/21 13:18 11/08/21 02:59 Ondansetron Inj 4 Mg/2 Ml Vial IV PUSH 4 mg Q4H PRN Administration Nausea Radiology Results: ITS Impressions Chest X-Ray 11/07/21 10:17 IMPRESSION: No acute cardiopulmonary findings. Abdomen Ultrasound 11/07/21 10:44 IMPRESSION: Mild biliary duct dilation, common finding for postcholecystectomy status. Chest/Abdomen/Pelvis CTA 11/07/21 11:55 IMPRESSION: 1. Mild biliary duct dilation, common finding following cholecystectomy. Acute cholangitis not excludable. No calcified choledocholithiasis. 2. Otherwise unremarkable CT pulmonary abdomen pelvis exam. MRCP 11/07/21 16:46 IMPRESSION: 1. 4 mm stone in the common bile duct with mild intrahepatic and extrahepatic biliary duct dilatation. 2. 11 mm mass superficial to the anterior righ
--- NOTE | 2021-11-09 09:42 | PM.DS ---
DS: Admitting Diagnosis Discharge Date 11/09/2021 Admitting Diagnosis Chief Complaint: Epigastric pain. DS: Discharge Diagnosis Discharge Diagnosis (1) Abdominal pain: Qualifiers: Abdominal location: epigastric Qualified Code(s): R10.13 - Epigastric pain Code(s): R10.9 - Unspecified abdominal pain Status: Acute Assessment and Plan: Concerning for choledocholithiasis though only mild dilatation noted on imaging. Peptic ulcer disease, cholangitis, mononucleosis, and acute hepatitis are also a consideration though seem less likely. She will receive a 1 time dose of Zosyn pending MRCP; if that is negative then we will continue antibiotics. She will be NPO after midnight for possible procedure tomorrow. Dr. Goodman has been consulted and his input is appreciated. 11/08/2021: interval history: 41-year-old female presented with epigastric pain, jaundice and elevated LFT, patient had MRCP showed patient has 4 mm stone in the common bile duct with mild intrahepatic and extrahepatic biliary duct dilatation. seen by GI suspect a jaundice stemming from retained bile duct stone recommending ERCP to remove the stone in the duct, patient is scheduled for the procedure later this afternoon will follow-up and further recommendation to follow. (2) Transaminitis: Code(s): R74.01 - Elevation of levels of liver transaminase levels Status: Acute Assessment and Plan: Plan is as detailed above. Check hepatitis panel for completeness sake. (3) Jaundice: Code(s): R17 - Unspecified jaundice Status: Acute Assessment and Plan: As above. DS: Summary Hospital Course Reason for hospitalization: Chief Complaint: Epigastric pain. Narrative: This is a pleasant 41-year-old female with status post cholecystectomy in 2004 with history of pulmonary embolism and kidney stones who presented to the emergency department this morning for evaluation of epigastric pain. Approximately 3 days ago she developed a squeezing and pressure like pain in the the epigastric region that has been nearly constant since the outset though tends to come and go in waves of intensity. At its worst she rates the pain 8/10 and she is not noticed any significant alleviating factors. Food may be an aggravating factor. Associated symptoms include chills, sweats, nausea, and shortness of breath due to severe pain. She was seen in the emergency department 2 days ago for the symptoms at which time her labs and imaging were fairly unremarkable. It was felt that she perhaps had gastritis or even ulcers due to NSAID use and she was able to be discharged home. Unfortunately her symptoms have not improved and in fact they have gotten worse. She has been taking Tylenol and thinks that perhaps it might take the edge off for only a short period of time. She attempted to eat something yesterday however was unable to keep that down. Labs today showed a significant elevation in her transaminases with hyperbilirubinemia and subsequent right upper quadrant ultrasound and abdominal CT showed mild biliary duct dilatation of 9 mm, not uncommon for a post cholecystectomy status. she is being admitted in this setting. At the time my evaluation she is resting comfortably and is feeling better with pain medications. Hospital Course: Concerning for choledocholithiasis though only mild dilatation noted on imaging. Peptic ulcer disease, cholangitis, mononucleosis, and acute hepatitis are also a consideration though seem less likely. She will receive a 1 time dose of Zosyn pending MRCP; if that is negative then we will continue antibiotics. She will be NPO after midnight for possible procedure tomorrow. Dr. Goodman has been consulted and his input is appreciated. 11/08/2021: interval history: 41-year-old female presented with epigastric pain, jaundice and elevated LFT, patient had MRCP showed patient has 4 mm stone in the common bile duct with mild intrahep
[2021-11-09 12:15] VITALS: O2SAT 98
== END 2021-11-09 13:25 | disposition home or self-care (01) ==
LOC: ANHED 13:21 → ANH3MEDSUR 11-08 08:31
PROVIDERS: Emergency Medicine; Internal Medicine Gastroenterology; Physician Assistant; Admitting Provider Internal Medicine; Emergency Provider Nurse Practitioner; PCP Family Medicine; Visit Provider Family Medicine
PROC: (CPT 43260; principal; 2021-11-08 15:30)
DX: K80.50 Calculus of bile duct without cholangitis or cholecystitis without obstruction (principal); R74.01 Elevation of levels of liver transaminase levels; R17 Unspecified jaundice; E80.6 Other disorders of bilirubin metabolism; R11.0 Nausea; R10.11 Right upper quadrant pain; K21.9 Gastro-esophageal reflux disease without esophagitis; F41.8 Other specified anxiety disorders; K58.9 Irritable bowel syndrome, unspecified; Z79.82 Long term (current) use of aspirin; Z86.711 Personal history of pulmonary embolism; K86.89 Other specified diseases of pancreas; Z20.822 Contact with and (suspected) exposure to COVID-19
CPT/HCPCS: 43262; 43264; 36415; 71045; 71275; 74177; 74183; 74329; 76376; 76705; 80053; 80074; 81001; 81025; 82248; 83605; 83690; 83735; 84443; 84484; 85025; 85027; 85380; 85610; 85730; 87040; 87804; 93005; 96361; 96365; 96375; 96376; 99285; A9270; A9577; C9803; G0378; J0330; J2270; J2405; J2543; J2704; J2710; J7030; J7040; J7120; Q9967; U0003; U0005

== ENCOUNTER 2021-12-02 12:41 | Outpatient (CLI) | payer BC, SELFPAY ==
[2021-12-02 13:52] LABS: Alanine Aminotransferase 45 U/L (4-35); Albumin Level 4.1 g/dL (3.5-5.1); Alkaline Phosphatase 109 U/L (38-126); Anion Gap 7 mmol/L (8-16); Aspartate Amino Transferase 38 U/L (14-36); Bilirubin,Total 0.5 mg/dL (0.2-1.3); Blood Urea Nitrogen 9 mg/dL (7-17); Carbon Dioxide 25 mmol/L (22-30); Chloride 105 mmol/L (98-107); Estimated Glomerular Filt Rate > 60; Glucose 92 mg/dL (65-110); Potassium 3.9 mmol/L (3.4-5.0); Sodium 137 mmol/L (137-145)
== END 2021-12-02 12:42 | disposition home or self-care (01) ==
LOC: ANHLAB 12:43
PROVIDERS: PCP Family Medicine; Visit Provider Family Medicine
DX: K80.50 Calculus of bile duct without cholangitis or cholecystitis without obstruction (principal); R74.01 Elevation of levels of liver transaminase levels
CPT/HCPCS: 36415; 80053

== ENCOUNTER 2021-12-06 14:39 | Outpatient (CLI) | payer BC, SELFPAY ==
[2021-12-06 15:25] LABS: Alanine Aminotransferase 41 U/L (4-35); Albumin Level 4.1 g/dL (3.5-5.1); Alkaline Phosphatase 104 U/L (38-126); Anion Gap 7 mmol/L (8-16); Aspartate Amino Transferase 31 U/L (14-36); Bilirubin,Total 0.5 mg/dL (0.2-1.3); Blood Urea Nitrogen 8 mg/dL (7-17); Carbon Dioxide 28 mmol/L (22-30); Chloride 104 mmol/L (98-107); Estimated Glomerular Filt Rate > 60; Glucose 88 mg/dL (65-110); Potassium 3.6 mmol/L (3.4-5.0); Sodium 139 mmol/L (137-145)
== END 2021-12-06 14:40 | disposition home or self-care (01) ==
LOC: ANHLAB 14:41
PROVIDERS: PCP Family Medicine; Visit Provider Internal Medicine Gastroenterology
DX: R74.01 Elevation of levels of liver transaminase levels (principal)
CPT/HCPCS: 36415; 80053

== ENCOUNTER 2022-11-06 19:15 | Emergency (ER) | payer BC, SELFPAY ==
--- NOTE | ~2022-11-06 | CT_ITS ---
Non-contrast CT scan of the Abdomen and Pelvis Clinical indication: Flank pain, hematuria Technique: 5 mm axial scans were obtained through the abdomen and pelvis without intravenous or oral contrast. Dose reduction technique was used on this scan by utilizing automated exposure control and iterative reconstruction technique. The dose-length product (DLP) was 180.82 mGy-cm. COMPARISON: 11/07/2021 Findings: Images through the lung bases reveal no abnormalities. 2 mm nonobstructing left renal stone present. No ureteral stone or hydronephrosis seen on either side . The liver, spleen, pancreas, and adrenals appear normal. Cholecystectomy clips are present. There is no aortic aneurysm. There is no evidence of bowel obstruction. Normal appendix. Images through the pelvis were performed. There is no evidence of ascites or lymphadenopathy. Urinary bladder unremarkable. No definite adnexal mass seen. Bilateral L5 pars interarticularis defects are noted, without subluxation. Impression: 2 mm nonobstructing left renal stone. Bilateral L5 pars interarticularis defects. Reviewed, dictated and finalized at [facility]. [employer] Impression: 2 mm nonobstructing left renal stone. Bilateral L5 pars interarticularis defects.
[2022-11-06 19:22] VITALS: BP 136/79; PULSE 93; RESP 16; TEMP 36.7; O2SAT 100
[2022-11-06 19:35] LABS: Basophils Absolute Auto 0.1 K/mm3 (0.0-0.1); Basophils Percent Auto 0.8 % (0.2-1.2); Eosinophils Absolute Auto 0.2 K/mm3 (0-0.3); Eosinophils Percent Auto 1.7 % (0-4.4); Hematocrit 41.6 % (37.0-47.0); Hemoglobin 13.8 g/dL (12.0-15.0); Immature Granulocyte Absolute 0.03 K/mm3 (0.00-0.031); Immature Granulocyte Percent A 0.3 % (0-0.5); Lymphocytes Absolute Auto 3.28 K/mm3 (0.9-3.2); Lymphocytes Percent Auto 29.5 % (18.3-44.2); Mean Corpuscular HGB Conc 33.2 g/dl (32-36); Mean Corpuscular Volume 87.4 fl (80-100); Mean Platelet Volume 8.2 fl (7.4-10.4); Monocytes Absolute Auto 0.8 K/mm3 (0.1-0.6); Neutrophils Absolute Auto 6.7 K/mm3 (1.3-6.7); Neutrophils Percent Auto 60.7 % (45.5-73.1); Platelet Count Result 411 k/mm3 (150-375); Red Blood Count 4.76 M/mm3 (4.2-5.4); Red Cell Distribution Width 13.2 % (11.5-14.5); White Blood Count 11.1 K/mm3 (4.5-10.0)
[2022-11-06 19:45] LABS: Alanine Aminotransferase 27 U/L (6-35); Albumin Level 4.4 g/dL (3.5-5.1); Alkaline Phosphatase 113 U/L (38-126); Anion Gap 6 mmol/L (8-16); Aspartate Amino Transferase 25 U/L (14-36); Bilirubin,Total 0.6 mg/dL (0.2-1.3); Blood Urea Nitrogen 10 mg/dL (7-17); Calcium 7.9 mg/dL (8.4-10.2); Carbon Dioxide 24 mmol/L (22-30); Chloride 104 mmol/L (98-107); Estimated CRCL calculation 79 ml/min; Estimated Glomerular Filt Rate > 60; Glucose 92 mg/dL (65-110); Potassium 3.6 mmol/L (3.4-5.0); Sodium 134 mmol/L (137-145)
[2022-11-06 23:48] LABS: Appearance Urine Clear (Clear); Bilirubin Urine Negative (Negative); Blood Urine Negative (Negative); Color Urine Yellow (Yellow); Glucose Urine UA Negative (Negative); Ketones Urine Negative (Negative); Leukocyte Esterase Ur Negative LEU/UL (Negative); Nitrate Urine Negative (Negative); Protein Urine Negative (Negative); Specific Grav Ur 1.025 (1.001-1.035); Urobilinogen Urine 0.2 mg/dL (<2.0)
[2022-11-06 23:54] LABS: Bacteria Urine Trace /hpf; Mucus Urine Moderate /lpf; RBC Urine 21-50 /hpf (0-2); Squamous Epithelial Cell Urine Occasional /hpf (Few)
[2022-11-06 23:57] LABS: Add Urine Microscopic? YES
[2022-11-07 00:13] VITALS: BP 125/84; PULSE 90; RESP 14; O2SAT 98
--- NOTE | 2022-11-07 00:36 | ED.GENADULT ---
HPI - General Adult General Chief complaint: Back Pain/Injury Stated complaint: left flank pain X1 day Time Seen by Provider: 11/07/22 00:09 History of Present Illness HPI narrative: 42-year-old female with history of kidney stones presented to the emergency department for evaluation of left flank pain this been ongoing since yesterday. Patient describes sharp left flank pain. Patient does have a prior history of kidney stones. Patient suspects her last kidney stones was approximately 2 years ago and it was approximately 3 mm at that time. Patient does not have follow-up with urology. Patient does report associated nausea and decreased p.o. intake. Patient has a past medical history of kidney stones, choledocholithiasis and pulmonary embolism. Related Data Home Medications Medication Instructions Recorded Confirmed aspirin 81 mg tablet,delayed 81 mg PO DAILY 06/16/20 12/15/21 release (Ed Low Dose Aspirin) folic acid 1 mg tablet 1 mg PO DAILY 06/16/20 12/15/21 famotidine 40 mg tablet (Pepcid) 40 mg PO DAILY 11/07/21 12/15/21 Allergies Allergy/AdvReac Type Severity Reaction Status Date / Time metronidazole AdvReac Unknown GI UPSET / Verified 11/07/22 00:48 EYES/TONGUE TURNING YELLOW morphine AdvReac Vomiting Verified 11/07/22 00:48 Review of Systems Review of Systems: CONSTITUTIONAL: Denies fever, chills, or sweats. EYES: Denies visual changes, redness, or discharge. ENT: Denies rhinorrhea, congestion, sore throat, or otalgia. CARDIOVASCULAR: Denies chest pain, palpitations, or edema. RESPIRATORY: Denies cough or dyspnea. GASTROINTESTINAL: See HPI GENITOURINARY: See HPI SKIN: Denies rash or itching. MUSCULOSKELETAL: Denies back pain, joint pain, or myalgia. NEUROLOGIC: Denies headache, numbness, or weakness. PSYCHIATRIC: Denies anxiety or depression. [facility] Past Medical History Medical History (Updated 11/07/22 @ 03:05 by Howard Martinez MD) Anxiety Choledocholithiasis Depression Endometriosis Gastroesophageal reflux disease Hyperthyroidism 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 Irritable bowel syndrome Kidney stones Migraines MTHFR gene mutation Nausea Pneumonia Pulmonary embolism (12/2018) RUQ pain Thrombocytosis Followed by Dr. Rizo. On daily folic acid. Urinary tract infection Surgical History Surgical History History of cholecystectomy History of right salpingo-oophorectomy (11/2020) S/P ERCP Family History Family History Mother Family history of Parkinson's disease Hypertension Grandparent Family history of Parkinson's disease Social History Social History Social History: Surrogate decision maker: Cezar Cornelius, . Code status: Full code. Second hand tobacco smoke exposure: No Alcohol intake: current Drinks per week: 2 Substance use: never Substance use type: does not use Living arrangements: with family Additional living arrangements comments: Lives in [place] with family. 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 Gender identity (if verbalized by the patient): Female Sexual Orientation (if Verbalized by the Patient): Straight or Heterosexual Exam Narrative: APPEARANCE: Well appearing, no pain, no distress, well-nourished. HEAD: normocephalic, atraumatic. EYES: PERRLA/EOMI, conjunctivae clear. NOSE: Normal no drainage EARS:TMS clear with good light reflex. THROAT: Pharynx clear, no exudate. NECK: Supple. No adenopathy, no masses. RESPIRATORY: Airway patent, respirations nonlabored. Clear to auscultation bilaterally, no rales, rhonchi, wheezing. CARDIOVASCULAR: Regular rate and rhythm without murmurs rubs or gallops. ABDOMINAL: Left CVA tenderness to palpation. No anterior ab
[2022-11-07] MEDS: SODIUM CHLORIDE 0.9% IV 1,000 ML 500 ML IV CONT (00:48)
[2022-11-07] MEDS: ONDANSETRON INJ 4 MG/2 ML VIAL IV PUSH (00:48)
[2022-11-07 03:13] VITALS: BP 113/86; PULSE 80; RESP 14; O2SAT 99
== END 2022-11-07 03:14 | disposition home or self-care (01) ==
PROVIDERS: Emergency Medicine; Emergency Provider Emergency Medicine; PCP Family Medicine
DX: R10.9 Unspecified abdominal pain (principal); R11.0 Nausea; R31.9 Hematuria, unspecified; K21.9 Gastro-esophageal reflux disease without esophagitis; K58.9 Irritable bowel syndrome, unspecified; N80.9 Endometriosis, unspecified; Z90.721 Acquired absence of ovaries, unilateral; Z90.79 Acquired absence of other genital organ(s); Z86.711 Personal history of pulmonary embolism; Z87.442 Personal history of urinary calculi; Z87.01 Personal history of pneumonia (recurrent); Z87.440 Personal history of urinary (tract) infections; Z79.82 Long term (current) use of aspirin; N20.0 Calculus of kidney
CPT/HCPCS: 36415; 74176; 80053; 81001; 81025; 85025; 87077; 87086; 87088; 96361; 96365; 96375; 99284; J0131; J2405; J7030

== ENCOUNTER 2024-01-29 09:09 | Outpatient (CLI) | payer BC, SELFPAY ==
[2024-01-29 09:56] LABS: Influenza A QL RT-PCR Negative (Negative); Influenza B QL RT-PCR Negative (Negative); RSV RNA, RT-PCR Negative (Negative); SARS-CoV-2 RNA PCR Positive (Negative)
== END 2024-01-29 09:10 | disposition home or self-care (01) ==
LOC: ANHLAB 09:10
PROVIDERS: PCP Family Medicine; Visit Provider Physician Assistant
DX: U07.1 COVID-19 (principal)
CPT/HCPCS: 87637